=== PATIENT | female | born 1955 | race Caucasian/White ===

== ENCOUNTER 2016-10-26 20:14 | Emergency (ER) | payer OTHER ==
--- NOTE | 2016-10-26 20:57 | ED ---
Adult Trauma - HPI Summary HPI Summary: Pt here w/ fall from deck prior to arrival. Matt is 2-3 foot from the ground. Accidentally stepped off of the edge and fell onto the ground which is dirt patch. Denies chest pain, dizziness or SOB prior to incident. She does not recall how she fell or if she had LOC. Reports believing she landed on her back however reports he found her on her face and she has multiple contusions on her face. She denies NELSON currently as well as nausea, vomiting, photophobia, neck pain, numbness, weakness however has great pain in B/L shoulders and arms which could be distracting from other injuries. Her glasses broke w/ her fall so her vision is blurry but she reports she has terrible vision w/o her glasses. H/o cervical fusion w/ 2 discs removed. Denies use of anti-coagulants and no daily ASA. Only med issue is HTN which is controlled w/ HCTZ. Allergies to naprosyn and flexeril - hives w/o anaphylaxis. Has had ibuprofen in the past w/o issues. Has not tried anything prior to arrival. BIBA. - History of Current Complaint Chief Complaint: EDExtremityUpper Stated Complaint: LT SHOULDER INJURY Time Seen by Provider: 10/26/16 20:29 Hx Obtained From: Patient, Family/Medical Biller Coder - Pain Intensity: 9 - Allergy/Home Medications Allergies/Adverse Reactions: Allergies Allergy/AdvReac Type Severity Reaction Status Date / Time Cyclobenzaprine AdvReac Severe Itching Verified 03/09/15 10:45 [From Flexeril] Naproxen [From Naprosyn] AdvReac Severe Itching Verified 03/09/15 10:45 PMH/Surg Hx/FS Hx/Imm Hx Previously Healthy: Yes Endocrine/Hematology History: Denies: Hx Anticoagulant Therapy, Hx Blood Disorders, Hx Unexplained Bleeding Cardiovascular History: Denies: Hx Pacemaker/ICD Respiratory History: Reports: Hx Sleep Apnea - current auto-CPAP user, some compliance issues, Other Respiratory Problems/Disorders - ex-smoker, current CPAP user, started 08/2012 Musculoskeletal History: Reports: Hx Back Problems - h/o cervical fusion; spinal stenosis, Other Musculoskeletal History - leg pain Denies: Hx Osteoporosis Sensory History: Reports: Hx Contacts or Glasses Denies: Hx Hearing Aid Opthamlomology History: Reports: Hx Contacts or Glasses Neurological History: Reports: Hx Spinal Cord Injury - spinal stenosis Psychiatric History: Denies: Hx Panic Disorder - Cancer History Hx Chemotherapy: No Hx Radiation Therapy: No - Surgical History Surgery Procedure, Year, and Place: [place] [facility] [place] [facility] [place] 2001 [facility]- discectomy, 2009 [facility]- (left) knee medial & meniscus tear Infectious Disease History: Denies: Traveled Outside the [place] in Last 30 Days - Social History Lives: With Family Hx Substance Use: Yes Substance Use Type: Reports: Marijuana Hx Tobacco Use: Yes - no current use Smoking Status (MU): Former Smoker Review of Systems Constitutional: Negative Eyes: Other - see HPI Negative: Dental Pain Negative: Chest Pain Negative: Shortness Of Breath Gastrointestinal: Negative Positive: no symptoms reported Musculoskeletal: Other - see HPI Positive: Bruising - abrasions - see HPI Neurological: Negative Positive: Anxious - pain is aggravating her All Other Systems Reviewed And Are Negative: Yes Physical Exam Triage Information Reviewed: Yes Vital Signs On Initial Exam: Initial Vitals Temp Pulse Resp BP Pulse Ox 97.4 F 80 16 133/84 98 10/26/16 20:20 10/26/16 20:20 10/26/16 20:20 10/26/16 20:20 10/26/16 20:20 Vital Signs Reviewed: Yes Appearance: Positive: Well-Appearing, Well-Nourished, Pain Distress Skin: Positive: Warm, Dry - multiple superficial abrasions over Lt side of face - no bleeding, no open lacerations; superficial abrasions over B/L knees as well Head/Face: Positive: Normal Head/Face Inspection - NTTP, no gross deformity; no battlesign, no raccon eyes Eyes: Positive: Normal, EOMI, AURA, Conjunctiva Clear ENT: Positive: Hearing grossly normal, Pharynx normal, TMs normal - no hemotympanum Dental: Negative: Dental Fracture @ Neck: Positive: Nontender, Other: - B/L paracervical mm are taught/hypertonic Respiratory/Lung Sounds: Positive: Clear to Auscultation, Breath Sounds Present Cardiovascular: Positive: Normal, RRR, Pulses are Symmetrical in both Upper and Lower Extremities Abdomen Description: Positive: Nontender, Soft Musculoskeletal: Positive: Strength/ROM Intact - LE's; spinous pp NTTP; chest is NTTP w/ A/P and lateral compression, Limited @ - elbow extension triggers pain in B/L biceps - better in flexed position; B/L shoulders are NTTP - clavicles appear to be intact - shoulders are worse and limited w/ ROM d/t pain ; she is able to move fingers, wrists B/L w/o pain/restriction Neurological: Positive: Normal, Sensory/Motor Intact, Alert, Oriented to Person Place, Time, CN Intact II-III Psychiatric: Positive: Anxious - aggravated w/ pain Diagnostics - Vital Signs Vital Signs Temp Pulse Resp BP Pulse Ox 10/26/16 20:20 97.4 F 80 16 133/84 98 - Laboratory Lab Statement: Any lab studies that have been ordered have been reviewed, and results considered in the medical decision making process. Adult Trauma Course/Dx - Course Course Of Treatment: Pt presents w/ trauma - fall from deck. Main complaint is B /L shoulder/arm pain. She does not recall events so head was imaged. She denies neck pain however she has muscle gaurding here and h/o cervical fusion so imaging also ordered. B/L shoulder and arms w/ pain w/ movement. XR's reveal no fx and possible AC joint separation - reviewed w/ Dr. Sexton - will sling. Discussed she may also have tendon injury/pain. Needs f/u w/ ortho. Limited medication as pt prefers PO and this was held until brain CT returned. She admits to taking ibuprofen in the past w/o issues (NOTE: allergy to naprosyn and flexeril). Also discussed musle relaxer options but she's concerned she may feel poorly and wanted to avoid until later assesment. Chest, ab, back and LE are w/o pain and/or s/sx of significant injury. UPDATE: brain, face and neck CT 's are w/o acute finding. Pt provided w/ ibuprofen w/ some relief. - Diagnoses Provider Diagnoses: Fall from height of less than 3 feet, Facial contusion, Multiple abrasions, Shoulder pain, bilateral - Physician Notifications Discussed Care Of Patient With: Dr. Sexton Discharge - Discharge Plan Condition: Stable Disposition: HOME Patient Education Materials: Acromioclavicular Separation (ED), Facial Contusion (ED), Abrasion (ED) Referrals: Hari Porter MD [Medical Doctor] - Heetderks,Hung, MD [Primary Care Provider] - Additional Instructions: You appear to have an Acromioclavicular joint separation on your XR therefore you will be placed in a sling. It is important that you rest arm in sling, ice and take ibuprofen 600mg every 6 hours alternating with acetaminophen 600mg every 6 hours for pain and swelling until seen by orthopedics. Call tomorrow to schedule an appointment. Keep your abrasions clean and apply triple antibiotic ointment *If you develop headache, change in vision, vomiting, confusion, neck pain, numbness, tingling, weakness, syncope, return to ED
--- NOTE | 2016-10-26 21:16 | RAD ---
INDICATION: Fall. Facial injury. COMPARISON: None TECHNIQUE: Noncontrast axial source images were acquired from the skull base to the vertex. FINDINGS: Ventricles/sulci: The ventricles and cisterns are normal in size and configuration for age. Brain parenchyma: There is no focal parenchymal finding, evidence of intracranial mass, or intracranial mass effect. Intracranial hemorrhage:None. Extra-axial spaces: There are no abnormal extra axial fluid collections or evidence of extra-axial mass. Calvarium: There is no calvarial fracture or other calvarial abnormality. Scalp: There is no evidence of scalp or extracalvarial soft tissue abnormality. Paranasal sinuses/mastoid: The paranasal sinuses and mastoid air cells are clear. Other: None. IMPRESSION: NO ACUTE INTRACRANIAL FINDINGS
--- NOTE | 2016-10-26 21:19 | RAD ---
INDICATION: Fall. Neck injury. COMPARISON: None TECHNIQUE: Noncontrast axial source images was performed from the skull base to the thoracic inlet. Coronal and and sagittal reformatted images were generated. FINDINGS: Vertebrae: There is no fracture or acute focal bony lesion. There is anterior cervical spine fusion at C5-C7. There is no evidence of hardware failure. There is degenerative disc disease at C3-C4 and C4-C5 with anterior vertebral spurring and uncinate process spurring. Alignment: The craniocervical junction appears normal. The cervical vertebrae are normally aligned. Central Canal: There are no significant CT abnormalities of the central canal. There is mild normal narrowing at C3-C4 and C4-C5 MR imaging is a more sensitive method to evaluate the canal and foramina. Intervertebral disc spaces: As above. Brain: The visualized brain appears unremarkable. Soft tissues: The visualized soft tissue elements of the neck are unremarkable. The prevertebral soft tissues appear normal. The lung apices are clear. IMPRESSION: OSTEOARTHRITIC CHANGES. C5-C7 FUSION. NO ACUTE FINDINGS.
[2016-10-26] MEDS ORDERED: Ibuprofen TAB* 800 MG PO ONE (21:21)
--- NOTE | 2016-10-26 21:21 | RAD ---
INDICATION: Facial injury COMPARISON: None TECHNIQUE: Axial source images were acquired from the vertex of the mandible through the orbits. Coronal and sagittal reconstructed images were acquired. FINDINGS: Bones: There is no acute facial bone fracture. Orbits: The globes and intraconal structures appear intact. The optic nerves are symmetric. Extraocular muscles appear normal. There is no intraconal inflammatory change or retrobulbar mass.. Paranasal sinuses: The paranasal sinuses are clear. Brain: There are no acute abnormalities of the visualized brain parenchyma. Soft tissues: Normal Other: There is minor osteoarthritis about the temporomandibular joints bilaterally The visualized soft tissue elements about the neck appear normal. IMPRESSION: NO ACUTE FACIAL BONE FRACTURE
[2016-10-26 21:33] VITALS: BP 130/77
[2016-10-26] MEDS ORDERED: Acetaminophen TAB* 325 MG PO ONE (23:06)
[2016-10-26] MEDS ORDERED: HYDROcodone/ACETAMIN 5-325 MG* 1 TAB PO ONE (23:26)
[2016-10-26] MEDS ORDERED: Acetaminophen ADULT LIQ* 650 MG/20.3 ML UDC PO ONE (23:27)
--- NOTE | 2016-10-27 07:19 | RAD ---
INDICATION: Left humerus injury. TECHNIQUE: 2 views of the left humerus were obtained. FINDINGS: The bones are in normal alignment. No fracture is seen. IMPRESSION: NO EVIDENCE FOR FRACTURE.
--- NOTE | 2016-10-27 07:20 | RAD ---
INDICATION: Right humerus injury. TECHNIQUE: 2 views of the right humerus were obtained. FINDINGS: The bones are in normal alignment. No fracture is seen. IMPRESSION: NO EVIDENCE FOR FRACTURE.
--- NOTE | 2016-10-27 07:22 | RAD ---
INDICATION: Trauma bilateral shoulder pain. TECHNIQUE: 4 views of both shoulders were obtained. FINDINGS: The bones are in normal alignment. No fracture is seen. Joint spaces appear maintained. IMPRESSION: NO EVIDENCE OF FRACTURE.
== END 2016-10-27 00:26 | disposition home or self-care (01) ==
LOC: ED 20:14
DX: S00.83XA Contusion of other part of head, initial encounter (principal); S00.81XA Abrasion of other part of head, initial encounter; S80.212A Abrasion, left knee, initial encounter; S80.211A Abrasion, right knee, initial encounter; W17.89XA Other fall from one level to another, initial encounter; Y93.9 Activity, unspecified; Y92.9 Unspecified place or not applicable; M25.512 Pain in left shoulder; M25.511 Pain in right shoulder; M47.812 Spondylosis without myelopathy or radiculopathy, cervical region; Z90.710 Acquired absence of both cervix and uterus; Z88.6 Allergy status to analgesic agent; Z88.8 Allergy status to other drugs, medicaments and biological substances; F12.90 Cannabis use, unspecified, uncomplicated; Z87.891 Personal history of nicotine dependence
CPT/HCPCS: 70450; 70486; 72125; 99282; A9270-GY

== ENCOUNTER 2017-06-09 06:09 | Observation (INO) | payer OTHER ==
[~2017-06-09 06:09] MED LIST: Buffered Lidocaine 0.9% SYRIN* 5 ML/SYR SYRINGE INTRADERM ONE; Dexamethasone IV* 4 MG/ML 1 ML (4 MG) IV SLOW PU ONE; Famotidine IV* 10 MG/ML 2 ML (20 mg) IV ONE
[2017-06-09] MEDS ORDERED: Famotidine IV* 10 MG/ML 2 ML (20 mg) ONE (06:18)
[2017-06-09] MEDS ORDERED: Buffered Lidocaine 0.9% SYRIN* 5 ML/SYR SYRINGE ONE (06:19)
[2017-06-09] MEDS ORDERED: Dexamethasone IV* 4 MG/ML 1 ML (4 MG) ONE (06:19)
[2017-06-09] MEDS ORDERED: Thrombin 5,000 UNITS* 1 APPLIC KIT - topical use - TOPICAL ONE (07:15)
[2017-06-09] MEDS ORDERED: Lidocaine 1.5% EPI 1:200,000* 30 ML SDV ONE (07:15)
[2017-06-09] MEDS ORDERED: Bacitracin IV* 50,000 UNITS INJ ONE (07:15)
[2017-06-09] MEDS ORDERED: ceFAZolin 1 GM in Dextrose (*) 2 GM/100 ML BAG IVPB ONE (07:28)
[2017-06-09] MEDS ORDERED: Lidocaine 1% INJ* 10 MG/ML 30 ML SDV ONE (07:35)
[2017-06-09] MEDS ORDERED: Succinylcholine* 20 MG/ML 10 ML VIAL ONE (07:35)
[2017-06-09] MEDS ORDERED: KETAMINE HCL* 50 MG/ML 10 ML VIAL ONE (07:37)
[2017-06-09] MEDS ORDERED: Midazolam* 1 MG/ML 2 ML VIAL (2 MG) ONE (07:37)
[2017-06-09] MEDS ORDERED: Propofol* 10 MG/ML 20 ML BTL IV PUSH ONE (08:40)
[2017-06-09] MEDS ORDERED: Phenylephrine INJ* 10 MG/ML 1 ML VIAL (10 MG) ONE (08:40)
[2017-06-09] MEDS ORDERED: Ketorolac INJ* 30 MG/ML 1 ML VIAL ONE (08:40)
[2017-06-09] MEDS ORDERED: Ondansetron INJ* 2 MG/ML VIAL ONE (08:40)
[2017-06-09] MEDS ORDERED: Acetaminophen TAB* 325 MG PO PRN (08:46)
[2017-06-09] MEDS ORDERED: Ondansetron INJ* 2 MG/ML VIAL IV PRN (08:46)
[2017-06-09] MEDS ORDERED: Magnesium Hydroxide LIQ* 30 ML UDC PO PRN (08:46)
[2017-06-09] MEDS ORDERED: oxyCODONE TAB* 5 MG TAB PO PRN (09:05)
[2017-06-09] MEDS ORDERED: Acetaminophen IV 1GM/100ML * 1,000 MG/100 ML VIAL IVPB PRN (09:10)
[2017-06-09] MEDS ORDERED: Naloxone* 0.4 MG/ML 1 ML VIAL IV PRN (09:10)
[2017-06-09] MEDS ORDERED: DiMENhydriNATE IV* 50 MG/ML VIAL IV PUSH PRN (09:10)
[2017-06-09] MEDS ORDERED: Acetaminophen IV 1GM/100ML * 100 ML ONE (09:31)
--- NOTE | 2017-06-09 11:11 | RAD ---
Indication: Decompressive lumbar laminectomy. Single lateral view of the lumbar spine taken in the operating room demonstrates localization of L5. IMPRESSION: Localization of L5 vertebra.
[2017-06-09] MEDS: CYCLOSPORINE 0.05% BOTH EYES SCH ×2 (14:06→20:29)
--- NOTE | 2017-06-10 07:52 | PN ---
Progress Note - Progress Note Date of Service: 06/10/17 SOAP: Subjective: []POD # 1 Doing well Leg yaa better C/O incisional pain Objective: []Wound OK Drainage decreased Neuro intact Assessment: []Satis post op course Plan: []D/C today D/C instructions given
[2017-06-10 08:30] VITALS: BP 100/57
[2017-06-10] MEDS: CYCLOSPORINE 0.05% BOTH EYES SCH (08:44)
--- NOTE | 2017-06-10 12:22 | OP ---
DATE OF OPERATION: 06/09/17 - ROOM #338 DATE OF : 55 PRIMARY SURGEON: Ramon Chu MD LOOM OPERATOR: TANIKA Wylie ANESTHESIA: General. PRE-OP DIAGNOSIS: Lumbar spinal stenosis, L4-5. POST-OP DIAGNOSIS: Lumbar spinal stenosis, L4-5. OPERATIVE PROCEDURE: Decompressive lumbar laminectomy L4-5 with foraminotomies L4- 5 bilaterally. DESCRIPTION OF PROCEDURE: After satisfactory general anesthesia was obtained, the patient was placed on the operating room table in a prone position with the chest supported on the Henrry frame and the back slightly flexed. The lumbar region was then clipped, prepped, and draped in a sterile manner for lumbar laminectomy and a skin incision was outlined from L4 to the sacrum. This incision was infiltrated with 1% Xylocaine with epinephrine after which it was turned in sharply to the level of the lumbar fascia. The fascia was divided along the spinous processes from L4 to L5 and the paraspinal musculature stripped away from these posterior elements using the periosteal elevator and monopolar cautery. An intraoperative x-ray was obtained, verifying proper interspace localization after which a decompression was carried out by first removing the spinous process of L4 with the Leksell rongeur as well as the superior aspect of the spinous process of L5. Midas Kip drill was then used to thin out the inferior portion of the lamina of L4 as well as the medial facet complex bilaterally. The decompression was carried superiorly into the fascia and the ligamentum flavum was taken down. The thickened ligamentum flavum was removed along with the medial facet complex bilaterally. The pathology at this level was a combination of bony and ligamentum thickening causing significant nerve root compression bilaterally more pronounced on the right side. At the conclusive of the decompression, generous foraminotomies had been carried out over both L5 nerve roots. The wound was then thoroughly irrigated after which a piece of Gelfoam was placed over the laminectomy defect. A drain was placed in the epidural space and tunneled out toward the left side. The fascia was then reapproximated with 0 Vicryl suture. The subcutaneous tissue was closed with 3-0 Vicryl suture, the skin closed with skin clips. The estimated blood loss was less than 50 cc. The final sponge, padding, and needle counts were correct. The patient was taken to the recovery room, extubated and in stable condition. [id number]/[facility] #: [id number] EDMAR
== END 2017-06-10 09:35 | disposition home or self-care (01) ==
LOC: OR 06:09 → SSU 08:46
PROVIDERS: ADMIT Neurological Surgery; ATTEND Neurological Surgery
PROC: 00NY0ZZ Release Lumbar Spinal Cord, Open Approach (ICD-10-PCS; principal; 2017-06-09 07:45)
DX: M48.061 Spinal stenosis, lumbar region without neurogenic claudication (principal)
CPT/HCPCS: 72100; A9270-GY; G0378; J0330; J0690; J1100; J1885; J2250; J2405; J2704

== ENCOUNTER 2018-10-28 16:02 | Observation (INO) | payer OTHER ==
--- OUTSIDE RECORDS SUMMARY | 2018-10-28 16:29 | XMS REPORT | Continuity of Care Document ---
:1955 External Reference #:[id number] Author Name Jennifer Jo Care Team Providers Name Role Phone Hung Williamson MD Primary Care Physician Unavailable Payers Date Identification Numbers Payment Provider Subscriber Policy Number: [id number] [employer] Beto Ocampo Group Number: [id number] [address] PayID: [id number] [place] [address] Problems Active Problems Provider Date Sciatica Ramon Chu M.D. Onset: 03/05/2015 Spinal stenosis of lumbar region Ramon Chu M.D. Onset: 03/26/2015 Localized, primary osteoarthritis Donna Bucio M.D. Onset: 10/06/2018 Family History Date Family Member(s) Observation Comments General Lung Cancer Father Mother Sister has had steroid injections for joint pain Social History Type Date Description Comments Sex Unknown Occupation Retired ETOH Use Occasionally consumes alcohol ETOH Use Occasionally consumes wine Tobacco Use Start: Unknown End: Patient is a former Quit 1999; Started Unknown smoker age 15; smoked max 1ppd Recreational Drug Use Denies Drug Use Smoking Status Reviewed: 10/06/18 Patient is a former Quit 1999; Started smoker age 15; smoked max 1ppd Exercise Type/Frequency Exercises regularly Allergies, Adverse Reactions, Alerts Active Allergies Reaction Severity Comments Date Flexeril 03/02/2015 Naproxen 03/05/2015 Medications Active Medications SIG Qnty Indications Ordering Provider Date Turmeric take one 90caps Z79.899 Bob Gaytan, 08/26/2018 500mg Capsules capsule/tablet M.D. daily by mouth Plaquenil 1 by mouth every 45tabs Bob Gaytan, 07/14/2018 200mg Tablets day for 1 week M.D. then 2 by mouth daily ongoing Restasis Instill 1 Drop Unknown 0.05% Emulsion In Each Eye Two Times Daily Probiotic 1 by mouth every Unknown Capsules day Multivitamin Adult 1 by mouth every Unknown day Tablets Fish Oil Unknown History Medications Ibuprofen 200 prn Unknown - 200mg Tablets 08/26/2018 Restasis Unknown - 0.05% Emulsion 07/01/2018 Naltrexone HCL 1 by mouth Unknown - 50mg Tablets every day 07/01/2018 Vitamin B1 1 by mouth bid Unknown - 100mg Tablets 07/01/2018 Thiamine HCL 1 by mouth Unknown - 100mg Tablets every day 07/01/2018 Vitamin B-12 1 by mouth Unknown - 1000mcg Tablets every day 07/01/2018 Folic Acid 1 by mouth Unknown - 5mg Tablets every day 07/01/2018 Multivitamin Adults 50+ once a day Unknown - Adlt 50+ 07/01/2018 Tablets Diclofenac Sodium Valentin Stuart - 0.1% Solution MD Luisito 03/30/2017 Hydrochlorothiazide Hung Williamson - 25mg Tablets MD Ashely 03/30/2017 Bacitracin (Ophthalmic) Unknown - 500Unit/GM 03/30/2017 Ointment Tobramycin-Dexamethasone Unknown - 0.3-0.1% 03/30/2017 Suspension Hydrocodone-Acetaminophen Unknown - 5-325mg 03/30/2017 Tablets Soy Isoflavones 1 qd Unknown - 100mg Capsules 07/01/2018 Citracal Calcium+D Slow 1 by mouth Unknown - Release every day 10/05/2018 [id number]-mg-Unit Tablets ER 24HR Fish Oil 1 by mouth Unknown - 1000mg Capsules every day 07/01/2018 Magnesium 1 by mouth Unknown - 200mg Tablets twice a day 07/01/2018 Vitamin C 1 by mouth 3x a Unknown - 250mg Chewtabs day 07/01/2018 Vital Signs Date Vital Result Comment 10/06/2018 11:01am Height 65.5 inches 5'5.50" Weight 156.00 lb BP Systolic 126 mmHg BP Diastolic 76 mmHg Body Temperature 97.9 F BMI (Body Mass Index) 25.6 kg/m2 08/26/2018 12:14pm Height 66 inches 5'6" Weight 154.38 lb Heart Rate 74 /min BP Systolic Sitting 120 mmHg BP Diastolic Sitting 80 mmHg Pain Level 2 O2 % BldC Oximetry 98 % BMI (Body Mass Index) 24.9 kg/m2 07/14/2018 1:39pm Height 66 inches 5'6" Weight 156.00 lb Heart Rate 62 /min BP Systolic Sitting 122 mmHg BP Diastolic Sitting 80 mmHg Pain Level 2 O2 % BldC Oximetry 98 % BMI (Body Mass Index) 25.2 kg/m2 07/01/2018 12:56pm Height 66 inches 5'6" Weight 140.00 lb Heart Rate 77 /min BP Systolic Sitting 105 mmHg BP Diastolic Sitting 57 mmHg Respiratory Rate 14 /min Pain Level 3 BMI (Body Mass Index) 22.6 kg/m2 07/13/2017 10:08am Height 66 inches 5'6" Weight 139.00 lb Heart Rate 60 /min BP Systolic Sitting 100 mmHg BP Diastolic Sitting 70 mmHg Pain Level 0 BMI (Body Mass Index) 22.4 kg/m2 06/22/2017 10:05am Height 66 inches 5'6" Weight 139.00 lb Heart Rate 62 /min BP Systolic Sitting 106 mmHg BP Diastolic Sitting 68 mmHg Pain Level 2 BMI (Body Mass Index) 22.4 kg/m2 06/15/2017 10:54am Height 66 inches 5'6" Weight 139.00 lb Heart Rate 78 /min BP Systolic Sitting 121 mmHg BP Diastolic Sitting 71 mmHg Pain Level 3 BMI (Body Mass Index) 22.4 kg/m2 05/20/2017 10:33am Height 66 inches 5'6" Weight 139.00 lb Heart Rate 66 /min BP Systolic Sitting 128 mmHg BP Diastolic Sitting 71 mmHg Pain Level 5 BMI (Body Mass Index) 22.4 kg/m2 03/30/2017 10:25am Height 66 inches 5'6" Weight 139.50 lb Heart Rate 72 /min BP Systolic Sitting 116 mmHg BP Diastolic Sitting 66 mmHg Pain Level 1 BMI (Body Mass Index) 22.5 kg/m2 03/23/2017 10:53am Height 66 inches 5'6" Weight 140.00 lb Heart Rate 77 /min BP Systolic Sitting 118 mmHg BP Diastolic Sitting 78 mmHg Pain Level 3 BMI (Body Mass Index) 22.6 kg/m2 11/20/2016 8:42am Height 66 inches 5'6" Weight 140.00 lb Heart Rate 75 /min Respiratory Rate 17 /min Pain Level 1 BMI (Body Mass Index) 22.6 kg/m2 10/27/2016 1:24pm Height 66 inches 5'6" Weight 140.00 lb BP Systolic 145 mmHg BP Diastolic 82 mmHg Respiratory Rate 17 /min Pain Level 6 BMI (Body Mass Index) 22.6 kg/m2 03/26/2015 9:30am Height 67 inches 5'7" Weight 142.00 lb Heart Rate 62 /min BP Systolic Sitting 110 mmHg BP Diastolic Sitting 80 mmHg Pain Level 6 r leg BMI (Body Mass Index) 22.2 kg/m2 03/05/2015 9:57am Height 67 inches 5'7" Weight 142.00 lb Heart Rate 86 /min BP Systolic Sitting 136 mmHg BP Diastolic Sitting 74 mmHg Pain Level 7 R foot, ankle & calf BMI (Body Mass Index) 22.2 kg/m2 03/02/2015 9:57am Height 67 inches 5'7" Weight 140.00 lb Pain Level 8 BMI (Body Mass Index) 21.9 kg/m2 Results Test Date Facility Test Result H/L Range Note Laboratory test 08/23/2018 [facility] Erythrocyte Sed 14 mm/Hr N 0-29 [address] [place] [address] [phone] C Reactive Protein 2.14 mg/L N <8.01 2 CBC Auto Diff 08/23/2018 [facility] White Blood 6.5 10^3/uL N 3.5-10.[address] [place] [address] [phone] Red Blood Count 4.45 10^6/uL N 3.70-4.87 Hemoglobin 13.3 g/dL N 12.0-16.0 Hematocrit 40 % N 33-41 Mean Corpuscular Volume 90 fL N 80-97 Mean Corpuscular Hemoglobin 30 pg N 27-31 Mean Corpuscular HGB Conc 33 g/dL N 31-36 Red Cell Distribution Width 14 % N 10.5-15 Platelet Count 336 10^3/uL N 150-450 Mean Platelet Volume 8.3 fL N 7.4-10.4 Abs Neutrophils 3.1 10^3/uL N 1.5-7.7 Abs Lymphocytes 2.6 10^3/uL N 1.0-4.8 Abs Monocytes 0.8 10^3/uL N 0-0.8 Abs Eosinophils 0.1 10^3/uL N 0-0.6 Abs Basophils 0 10^3/uL N 0-0.2 Abs Nucleated RBC 0 10^3/uL Granulocyte % 47.1 % Lymphocyte % 39.6 % Monocyte % 11.7 % Eosinophil % 1.4 % Basophil % 0.2 % Nucleated Red Blood Cells % 0.1 Comp Metabolic Panel 08/23/2018 [facility] Sodium 140 mmol/L N 135-145 [address] [place] [address] [phone] Potassium 4.4 mmol/L N 3.5-5.0 Chloride 104 mmol/L N 101-111 Co2 Carbon Dioxide 29 mmol/L N 22-32 Anion Gap 7 mmol/L N 2-11 Glucose 83 mg/dL N 70-100 Blood Urea Nitrogen 14 mg/dL N 6-24 Creatinine 0.72 mg/dL N 0.51-0.95 BUN/Creatinine Ratio 19.4 N 8-20 Calcium 10.3 mg/dL N 8.6-10.3 Total Protein 7.1 g/dL N 6.4-8.9 Albumin 4.5 g/dL N 3.2-5.2 Globulin 2.6 g/dL N 2-4 Albumin/Globulin Ratio 1.7 N 1-3 Total Bilirubin 0.40 mg/dL N 0.2-1.0 Alkaline Phosphatase 82 U/L N 34-104 Alt 17 U/L N 7-52 Ast 23 U/L N 13-39 Egfr Non- 82.1 >60 Egfr 99.3 >60 3 Laboratory test 07/01/2018 [facility] Uric Acid 4.0 mg/dL N 2.3-6.6 [address] [place] [address] [phone] Protein 07/01/2018 [facility] Total 6.8 g/dL 6.3 - 7.[address] Protein([place] [address] p) [phone] Albumin 3.5 g/dL 3.4-4.7 Alpha-1 Globulin 0.3 g/dL 0.1-0.3 Alpha-2 Globulin 0.8 g/dL 0.6-1.0 Beta Globulin 0.9 g/dL 0.7-1.2 Gamma Globulin 1.2 g/dL 0.6-1.6 Albumin/Globulin Ratio 1.07 Impression See Comment 5 Laboratory test 07/01/2018 [facility] Vitamin D 24.3 ng/mL N 20-50 [address] Total 25(Oh) [place] [address] [phone] Pthi 07/01/2018 [facility] Calcium (PTH 9.4 mg/dL N 8.6-10.[address] Intact) [place] [address] [phone] PTH Intact 4.5 pmol/L N 1.3-9.3 Alkaline Phos 07/01/2018 [facility] Alkaline 98 U/L 35 - [address] [address] [phone] Alp Liver 1% 36.6 % 27.8-76.3 Alp Liver 1 35.9 IU/L 16.2-70.2 Alp Liver 2% 5.4 % 0.0-8.0 Alp Liver 2 5.3 IU/L 0.0-5.8 Alp Bone % 32.8 % 19.1-67.7 Alp Bone 32.1 IU/L 12.1-42.7 Alp Intestine % 25.2 % Abnormal 0.0-20.6 Alp Intestine 24.7 IU/L Abnormal 0.0-11.0 Alp Placental NotPresent 7 Laboratory 07/01/2018 [facility] Aso 200 Abnormal <200 8 test finding [address] (Antistreptolysin IU/mL Iu/[place] [address] O) Titer IU/mL [phone] Angiotensin Converting Enzyme 61 U/L Abnormal 8 - 53 9 Thyroperoxidase AB 0.83 IU/mL N <9 10 Cortisol 3.53 g/dL 11 Cardiolipin 07/01/2018 [facility] Phospholipid Ab < 9.4 MPL 12 Igg/Igm [address] IgM, [place] [address] [phone] Phospholipid Ab IgG < 9.4 GPL 13 Immunoglobulins 07/01/2018 [facility] Immunoglobulin G 1120 767 - [address] mg/dL 1590 [place] [address] [phone] Immunoglobulin M 80 mg/dL 37 - 286 Immunoglobulin A 346 mg/dL 61 - 356 Anca AB Ser If 07/01/2018 [facility] C-Anca Negative Negative [address] [place] [address] [phone] P-Anca Negative Negative 15 Ssa/SSB Abs Igg 07/01/2018 [facility] SS-A/Ro Antibody <0.2 U [address] [place] [address] [phone] SS-B/La Antibody <0.2 U 17 Hla B27 07/01/2018 [facility] Hla B27 Negative [address] [place] [address] [phone] Hla B27 Interp See Comment 19 Vitamin B12 And 07/01/2018 [facility] Vitamin B12 510 pg/mL N 180-914 [address] [place] [address] [phone] Folic Acid (Folate) 8.99 ng/mL >3.99 21 Laboratory test 07/01/2018 [facility] Erythrocyte Sed 23 mm/Hr N 0-[address] [place] [address] [phone] Creatine Kinase(CK) 52 U/L N 10-223 23 Tick-Borne Panel 07/01/2018 [facility] Babesia Negative Negative PCR Blood [address] [place] [address] [phone] Babesia ducani Negative Negative Babesia divergens/Mo-1 Negative Negative 24 Anaplasma phagocytophilum Negative Negative Ehrlichia chaffeensis Negative Negative Ehrlichia ewingii/canis Negative Negative Ehrlichia muris eauclairensis Negative Negative 25 B. miyamotoi PCR, B Negative Negative 26 Body Fluid C&S 06/15/2017 [facility] Body Fluid Cult SEE RESULT 27, [address] [place] [address] [phone] Laboratory test 06/02/2017 [facility] TSH (Thyroid 2.95 N 0.[address] Stimulating mcIU/mL -5.6 [place] [address] Horm) 0 [phone] Basic Metabolic 06/02/2017 [facility] Sodium 137 mmol/L N 133 - Panel [address] [place], [place] [address] [phone] Potassium 4.1 mmol/L N 3.5-5.0 Chloride 102 mmol/L N 101-111 Co2 Carbon Dioxide 28 mmol/L N 22-32 Anion Gap 7 mmol/L N 2-11 Glucose 76 mg/dL N 70-100 Blood Urea Nitrogen 12 mg/dL N 6-24 Creatinine 0.70 mg/dL N 0.51-0.95 BUN/Creatinine Ratio 17.1 N 8-20 Calcium 9.8 mg/dL N 8.6-10.3 Egfr Non- 85.1 >60 Egfr 109.4 >60 29 CBC No Diff 06/02/2017 [facility] White Blood 7.6 10^3/uL N 3.5-10.[address] [place] [place] [address] [phone] Red Blood Count 4.49 10^6/uL N 4.0-5.4 Hemoglobin 13.7 g/dL N 12.0-16.0 Hematocrit 41 % N 35-47 Mean Corpuscular Volume 91 fL N 80-97 Mean Corpuscular Hemoglobin 31 pg N 27-31 Mean Corpuscular HGB Conc 34 g/dL N 31-36 Red Cell Distribution Width 13 % N 10.5-15 Platelet Count 337 10^3/uL N 150-450 Mean Platelet Volume 9 um3 N 7.4-10.4 1 Please check labs 2 days before follow up 2 Please check labs 2 days before follow up 3 Because ethnic data is not always readily available, this report includes an eGFR for both -Americans and non- Americans. The National Kidney Disease Education Program (NKDEP) does not endorse the use of the MDRD equation for patients that are not between the ages of 18 and 70, are , have extremes of body size, muscle mass, or nutritional status, or are non- or non-. According to the National Kidney Foundation, irrespective of diagnosis, the stage of the disease is based on the level of kidney function: Stage Description GFR(mL/min/1.73 m(2)) 1 Kidney damage with normal or decreased GFR 90 2 Kidney damage with mild decrease in GFR 60-89 3 Moderate decrease in GFR 30-59 4 Severe decrease in GFR 15-29 5 Kidney failure <15 (or dialysis) 4 Please check labs and xrays this week 5 RESULT: No apparent monoclonal protein on serum electrophoresis. Test Performed by: [facility] [facility] [place] [address] 6 Please check labs and xrays this week 7 REFERENCE VALUE Not present Test Performed by: [place] [address] 8 Normal values may vary with age, season and geographic area. Titers above upper limits may be indicative of infection, however only a two dilution rise in titer is required to be considered significant. ASO titer will usually rise above upper limits within one week of exposure, increase to peak levels at 3-5 weeks and return to baseline level at 6-12 twelve months. 9 Test Performed by: [place] [address] 10 Please check labs and xrays this week 11 AM 8.7-22.4 PM <10 12 REFERENCE VALUE <15.0 (Negative) 13 REFERENCE VALUE <15.0 (Negative) Test Performed by: [place] [id number] Test Performed by: [facility] [place] [address] [place] [address] 15 Negative for cANCA and pANCA patterns by immunofluorescence. ADDITIONAL INFORMATION This test was developed and its performance characteristics determined by [facility] in a manner consistent with CLIA requirements. This test has not been cleared or approved by the U.S. Food and Drug Administration. Test Performed by: [facility] [place] - [address] [address] 16 REFERENCE VALUE <1.0 (Negative) 17 REFERENCE VALUE <1.0 (Negative) Test Performed by: [facility] [place] [facility] [address] [place] [address] 18 REFERENCE VALUE Not Applicable 19 RESULT: HLA-B27 antigen was not detected. ADDITIONAL INFORMATION Method: Flow Cytometry Performing Laboratory CLIA# [id number] Test Performed by: [facility] [place] [address] [place] [address] 20 Normal Range 180 to 914 Indeterminate Range 145 to 180 Deficient Range <145 21 Please check labs and xrays this week 22 Test Performed by: [facility] [address] [place], [place] [address] Og Clay M.D. Director of Laboratory 23 Please check labs and xrays this week 24 ADDITIONAL INFORMATION This test was developed and its performance characteristics determined by [facility] in a manner consistent with CLIA requirements. This test has not been cleared or approved by the U.S. Food and Drug Administration. 25 ADDITIONAL INFORMATION This test was developed and its performance characteristics determined by [facility] in a manner consistent with CLIA requirements. This test has not been cleared or approved by the U.S. Food and Drug Administration. 26 ADDITIONAL INFORMATION This test was developed and its performance characteristics determined by [facility] in a manner consistent with CLIA requirements. This test has not been cleared or approved by the U.S. Food and Drug Administration. Test Performed by: [facility] - [address] [address] 27 [id number] SEE RESULT BELOW Name: BETO OCAMPO : 1955 Attend : Jana SAGASTUME Acct: [id number] Unit: [id number] AGE: 61 Location: [facility] Re06/15/17 SEX: F Status: REG REF SPEC: [id number] AREN: 06/15/17-1200 [facility] : Jana SAGASTUME REQ: [id number] RECD: 06/15/17 STATUS: COMP _ SOURCE: BODY FLUID [facility]: ORDERED: BF Richard/GS, MRSA/SA SSTI COMMENTS: [id number] Procedure Result Reported Site Body Fluid Gram Stain Final 06/16/17- 0723 ML 3+ Neutrophils No Organisms Seen Preparation By Cytospin Smear Body Fluid Culture Final 06/19/17- 0835 ML No Growth Day 4 MRSA/S. aureus SSTI PCR Final 06/16/17- 0026 ML Organism 1 MRSA NEGATIVE Organism 2 S.AUREUS NEGATIVE * ML - MAIN LAB ([facility]) . END OF REPORT * ML=Testing performed at Main Lab DEPARTMENT OF PATHOLOGY, [address] [place] [address] Og Clay M.D. Director [facility] # [id number] 29 Because ethnic data is not always readily available, this report includes an eGFR for both -Americans and non- Americans. The National Kidney Disease Education Program (NKDEP) does not endorse the use of the MDRD equation for patients that are not between the ages of 18 and 70, are , have extremes of body size, muscle mass, or nutritional status, or are non- or non-. According to the National Kidney Foundation, irrespective of diagnosis, the stage of the disease is based on the level of kidney function: Stage Description GFR(mL/min/1.73 m(2)) 1 Kidney damage with normal or decreased GFR 90 2 Kidney damage with mild decrease in GFR 60-89 3 Moderate decrease in GFR 30-59 4 Severe decrease in GFR 15-29 5 Kidney failure <15 (or dialysis) Procedures Date Code Description Status 10/06/2018 86938 Inject/Drain Joint/Bursa Major W/O US Completed 03/24/2018 [id number] Bone Mineral Density Test Completed 06/09/2017 41647 Lundy/Facet/Foraminotomy;Vertebral Segment; Lumbar Completed 06/09/2017 66939 Lundy/Facet/Foraminotomy;Vertebral Segment; Lumbar Completed 06/02/2017 17490 EKG, Interpretation Only Completed 08/31/2012 28389 Polysomnography Sleep Staging 4+ Parameters W/Cpap Completed 07/19/2012 33697 Polysomnography Sleep Staging 4+ Parameters Completed Encounters Type Date Location Provider Dx Diagnosis Office Visit 08/26/2018 Rheumatology Bob Gaytan 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 polyarthropathy R74.8 Abnormal levels of other serum enzymes Z79.899 Other extermination inspector (current) drug therapy I73.00 Raynaud's syndrome without gangrene Office Visit 07/01/2018 Rheumatology Bob M06.4 Inflammatory 1:00p [facility] M.D. 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 M25.522 Pain in left elbow Office Visit 10/27/2016 1:00p Orthopedic Hari Jacobson M25.512 Pain in left [facility] M25.522 Pain in left elbow M79.602 Pain in left arm Office Visit 03/26/2015 Neurosurgery Ramon Chu, M48.06 Spinal stenosis , 9:30a [facility] lumbar region Office Visit 03/05/2015 Neurosurgery Ramon Chu M54.31 Sciatica, right 10:15a [facility] side Office Visit 03/02/2015 Kalpana Marvin M54.31 Sciatica, right 9:40a [facility] Luther Sales M.D. side Office Visit 08/04/2012 Wilbert Marvin 327.23 Obstructive Sleep 3:46p Disorder [facility] 327.51 Periodic Limb Movement Disorder Office Visit 06/09/2012 11:02a Wilbert Marvin 786.09 Dyspnea & Disorder [facility] Abnormalities Other 780.79 Malaise And Fatigue Other Plan of Treatment Future Appointment(s):11/10/2018 10:15 am - Donna Bucio M.D. at [facility]11/29/2018 10:40 am - Bob Lukas, M.D. at [facility]umatology [facility]10/06/2018 - Donna Bucio M.D.M25.562 Pain in left kneeFollow up :Follow up: 4 cqrnzI79.462 Effusion, left kneeM17.12 Unilateral primary osteoarthritis, left kneeNew Therapy:Physical Therapy
--- OUTSIDE RECORDS SUMMARY | 2018-10-28 16:29 | XMS REPORT | Continuity of Care Document ---
:1955 External Reference #:[id number] Author Name Hung Williamson MD Address [address] [place] [address] Care Team Providers Name Role Phone Hung Williamson MD Care Team Information Room Service Supervisor Unavailable Payers Date Identification Numbers Payment Provider Subscriber Policy Number: [id number] [employer](Open Choice) Beto Ocampo Group Number: [id number] [address] PayID: [id number] [place] [address] Family History Date Family Member(s) Observation Comments General Cancer, Lung Several relatives all at once: Father, sister, father in law. 13 years ago. They both quickly, less than a year later. Social History Type Date Description Comments Sex Unknown Marital Status Lives With Male Partner Occupation Retired Director of IS at Tobacco Use Start: Unknown End: Former Cigarette Smoker Smoked for 30 years. 3 Unknown relatives of lung cancer. ETOH Use Consumed 3 glasses of She was drinking wine wine per day in the past until she passed out at one point, she is in chemical dependency treatment. Allergies, Adverse Reactions, Alerts Active Allergies Reaction Severity Comments Date Flexeril Urticaria 05/05/2016 Naprosyn Urticaria 05/05/2016 Amoxicillin / Clavulanate diarrhea, severe 01/07/2017 Medications Active Medications SIG Qnty Indications Ordering Date Provider Doxycycline Hyclate 1 tab by mouth 28tabs Hung 10/27/2018 100mg Tablets twice a day x MD Clay 14 days Ok For Herbal Tea, Back R20.2 Hung 02/19/2017 Massages, And General MD Clay Relaxation Citracal Calcium two by mouth Unknown daily 203-63-528yp-mg-Unit Tablets ER 24HR Restasis per eye doctor Unknown 0.05% Emulsion Fluorometholone Instill 1 Drop Unknown 0.1% Suspension Three Times Daily In The Right Eye For 1 Week, Then Two Times Daily For 1 Week Probiotic Acidophilus 1 by mouth Unknown Capsules every day Hydroxychloroquine Sulfate Take 2 Tablets Unknown 200mg By Mouth Every Tablets Day Tumersaid Unknown Tablets History Medications Levofloxacin 1 tab by everyday 7tabs J18.9 Adore [place] 06/23/2018 - 500mg Tablets for 7 days for Zeb Larios 10/27/2018 pneumonia Proair HFA 2 puffs every 4 1units J18.9 Adore [place] 06/23/2018 - 108(90Base) mcg/Act hours as needed Zeb Larios 10/27/2018 Aerosol wheezing- may fill with any preferred albuterol inhaler Flovent Diskus inhale one puff 60units J18.9 Adore [place] 06/23/2018 - 100mcg/Blist by mouth twice Zeb Larios 10/27/2018 Aerosol daily as directed - rinse mouth after use Guaifenesin ac 5 milliliters at 100ml J18.9 Adore [place] 06/23/2018 - 100-10mg/5ML night as needed Zeb Larios 10/27/2018 Syrup for cough- causes drowsiness Doxycycline Hyclate 1 tab by mouth 20tabs J18.9 Hung 06/16/2018 - 100mg twice a day x 10 MD Clay 06/23/2018 Tablets days Doxycycline Monohydrate 1 by mouth twice 20caps J01.90 Adore [place] 2017 - 100mg a day x 10 days Zeb Larios 06/16/2018 Capsules for sinusitis/ bronchitis - Please Fill Now Zyrtec Allergy 1 by mouth every 30tabs R05 Hung 05/19/2016 - 10mg Tablets day MD Clay 01/07/2017 Protonix 1 tab by mouth 30tabs R05 Hung 05/19/2016 - 20mg Tablets DR nubia Williamson MD 01/07/2017 Hydrochlorothiazide 1 by mouth every 90tabs I10 Hung 05/19/2016 - 25mg day MD Clay 01/07/2017 Tablets Lotemax Apply 1/4 Inch Unknown - 0.5% Ointment Ribbon To Left 10/27/2018 Lower Lid Two Times Daily For 2 Weeks Ibuprofen 200 as needed Unknown - 200mg Tablets 10/27/2018 Dina Back & Body Unknown - 500-32.5mg 04/12/2018 Tablets Antifungal apply to feet for Unknown - 1% Cream athlete's foot 03/29/2018 Thiamine HCL 1 by mouth once Unknown - 100mg Tablets per day 04/12/2018 Melatonin ER Unknown - 3mg Tablets ER 01/06/2018 Vitamin B-12 1000 mcg by mouth Unknown - Natural every day 04/12/2018 500mcg Tablets Folic Acid 1 by mouth every Unknown - 5mg Capsules day 04/12/2018 Naltrexone HCL 1 by mouth every 90tabs Hung - 50mg Tablets day MD Clay 01/06/2018 Artificial Tears use q 2 hrs prn Unknown - 0.1-0.3% 03/29/2018 Solution Diclofenac Sodium eye drops Unknown - 0.1% Solution 01/07/2017 Soy Isoflavones Unknown - 100mg Capsules 04/12/2018 Magnesium 1 by mouth every Unknown - 400mg Tablets day 04/12/2018 Fish Oil 1 by mouth every Unknown - 1000mg Capsules day 04/12/2018 Vitamin C Unknown - 500mg Capsules 04/12/2018 Multivitamin Adult 1 by mouth every Unknown - Tablets day 04/12/2018 Medications Administered in Office Medication SIG Qnty Indications Ordering Provider Date TB,Intradermal (PPD, Mantoux) [facility] 10/14/2016 Injection Immunizations CPT Code Status Date Vaccine Lot # [id number] Given 01/06/2018 Influenza Virus Vaccine, Quadrivalent, 3 Yr > [id number] Quad, Preserv Free [id number] Given 03/06/2017 Zoster Vaccine [id number] Given 01/29/2017 Tdap (Adacel) [id number] Given 01/07/2017 Influenza Virus Vaccine, Quadrivalent, 3 Yr > [id number] Quad, Preserv Free Vital Signs Date Vital Result Comment 10/27/2018 4:49pm Weight 152.12 lb Weight 69.004 kg BP Systolic 114 mmHg BP Diastolic 64 mmHg Heart Rate 100 /min Body Temperature 102.0 F Respiratory Rate 18 /min Height 66 inches 5'6" BMI (Body Mass Index) 24.6 kg/m2 O2 % BldC Oximetry 97 % 06/28/2018 9:44am Weight 157.00 lb Weight 71.215 kg BP Systolic 128 mmHg BP Diastolic 72 mmHg Heart Rate 74 /min Body Temperature 97.8 F Respiratory Rate 16 /min O2 % BldC Oximetry 98 % 06/23/2018 11:43am Weight 157.12 lb Weight 71.272 kg BP Systolic 128 mmHg BP Diastolic 76 mmHg Heart Rate 86 /min Body Temperature 98.2 F Respiratory Rate 18 /min O2 % BldC Oximetry 98 % 06/16/2018 9:27am Weight 157.00 lb Weight 71.215 kg BP Systolic 102 mmHg BP Diastolic 54 mmHg Heart Rate 74 /min Body Temperature 98.5 F Respiratory Rate 18 /min O2 % BldC Oximetry 96 % 04/22/2018 10:31am Weight 156.00 lb Weight 70.762 kg BP Systolic 104 mmHg BP Diastolic 60 mmHg Heart Rate 75 /min Body Temperature 98.4 F Respiratory Rate 20 /min O2 % BldC Oximetry 96 % 04/12/2018 4:27pm Weight 157.00 lb Weight 71.215 kg BP Systolic 104 mmHg BP Diastolic 64 mmHg Heart Rate 80 /min Body Temperature 98.7 F O2 % BldC Oximetry 95 % 03/29/2018 9:57am Weight 154.00 lb Weight 69.854 kg BP Systolic 102 mmHg BP Diastolic 60 mmHg Heart Rate 84 /min Body Temperature 98.3 F Respiratory Rate 14 /min 03/03/2018 4:11pm Weight 154.00 lb Weight 69.854 kg BP Systolic 112 mmHg BP Diastolic 74 mmHg Heart Rate 74 /min Body Temperature 97.1 F Respiratory Rate 16 /min O2 % BldC Oximetry 97 % 01/06/2018 7:59am Weight 150.00 lb Weight 68.040 kg BP Systolic 110 mmHg BP Diastolic 72 mmHg Heart Rate 74 /min Body Temperature 97.0 F Respiratory Rate 16 /min Height 66 inches 5'6" BMI (Body Mass Index) 24.2 kg/m2 O2 % BldC Oximetry 98 % 03/06/2017 2:50pm BP Systolic 110 mmHg BP Diastolic 69 mmHg Heart Rate 76 /min Body Temperature 97.9 F O2 % BldC Oximetry 97 % 02/19/2017 11:15am Weight 143.00 lb Weight 64.865 kg BP Systolic 122 mmHg BP Diastolic 60 mmHg Heart Rate 80 /min Body Temperature 98.0 F 01/29/2017 11:03am Weight 143.00 lb Weight 64.865 kg BP Systolic 108 mmHg BP Diastolic 64 mmHg Heart Rate 68 /min Body Temperature 98.3 F Respiratory Rate 16 /min 01/07/2017 11:41am BP Systolic 124 mmHg BP Diastolic 76 mmHg Heart Rate 68 /min Body Temperature 97.8 F Respiratory Rate 16 /min O2 % BldC Oximetry 98 % 06/27/2016 9:35am Weight 143.00 lb Weight 64.865 kg BP Systolic 140 mmHg BP Diastolic 80 mmHg Heart Rate 68 /min Body Temperature 98.4 F Respiratory Rate 12 /min 05/19/2016 9:47am Weight 142.00 lb Weight 64.411 kg BP Systolic 164 mmHg BP Diastolic 92 mmHg Heart Rate 89 /min Body Temperature 96.4 F Respiratory Rate 16 /min O2 % BldC Oximetry 97 % 05/05/2016 10:10am Weight 143.00 lb Weight 64.865 kg BP Systolic 164 mmHg BP Diastolic 92 mmHg Heart Rate 90 /min Body Temperature 98.5 F Height 65 inches 5'5" BMI (Body Mass Index) 23.8 kg/m2 Results Test Date Facility Test Result H/L Range Note Laboratory test 10/27/2018 [facility] Lyme Screen < pending> 1 finding [phone] W/ Reflex To WB C Reactive Protein 12.04 mg/L High <8.01 2 CBC Auto Diff 10/27/2018 [facility] White Blood 6.3 10^3/uL N 3.5-10.8 [phone] Count Red Blood Count 4.36 10^6/uL N 3.70-4.87 Hemoglobin 13.1 g/dL N 12.0-16.0 Hematocrit 39 % N 35-47 Mean Corpuscular Volume 89 fL N 80-97 Mean Corpuscular Hemoglobin 30 pg N 27-31 Mean Corpuscular HGB Conc 34 g/dL N 31-36 Red Cell Distribution Width 14 % N 10-15 Platelet Count 251 10^3/uL N 150-450 Mean Platelet Volume 8.2 fL N 7.4-10.4 Abs Neutrophils 5.3 10^3/uL N 1.5-7.7 Abs Lymphocytes 0.7 10^3/uL Low 1.0-4.8 Abs Monocytes 0.4 10^3/uL N 0-0.8 Abs Eosinophils 0.0 10^3/uL N 0-0.6 Abs Basophils 0.0 10^3/uL N 0-0.2 Abs Nucleated RBC 0.0 10^3/uL Granulocyte % 83.6 % Lymphocyte % 10.6 % Monocyte % 5.5 % Eosinophil % 0.1 % Basophil % 0.2 % Nucleated Red Blood Cells % 0.0 Comp Metabolic Panel 10/27/2018 [facility] Sodium 136 mmol/L N 135-145 [phone] Potassium 4.3 mmol/L N 3.5-5.0 Chloride 103 mmol/L N 101-111 Co2 Carbon Dioxide 26 mmol/L N 22-32 Anion Gap 7 mmol/L N 2-11 Glucose 99 mg/dL N 70-100 Blood Urea Nitrogen 11 mg/dL N 6-24 Creatinine 0.91 mg/dL N 0.51-0.95 BUN/Creatinine Ratio 12.1 N 8-20 Calcium 9.4 mg/dL N 8.6-10.3 Total Protein 6.6 g/dL N 6.4-8.9 Albumin 4.1 g/dL N 3.2-5.2 Globulin 2.5 g/dL N 2-4 Albumin/Globulin Ratio 1.6 N 1-3 Total Bilirubin 0.30 mg/dL N 0.2-1.0 Alkaline Phosphatase 61 U/L N 34-104 Alt 25 U/L N 7-52 Ast 29 U/L N 13-39 Egfr Non- 62.6 >60 Egfr 75.8 >60 3 Laboratory test 09/30/2018 [facility] Surgical SEE RESULT 4, 5 finding [phone] Pathology BELOW Laboratory test 08/23/2018 [facility] Erythrocyte Sed 14 mm/Hr N 0-29 6 finding [phone] Rate Comp Metabolic 08/23/2018 [facility] Sodium 140 mmol/ L N 135-1 Panel [phone] Potassium 4.4 mmol/L N 3.5-5.0 Chloride 104 [...] Egfr Non- 82.1 >60 Egfr 99.3 >60 7 CBC Auto Diff 08/23/2018 [facility] White Blood 6.5 10^3/uL N 3.5-10.8 [phone] Count Red Blood Count 4.45 10^6/uL N 3.70-4.87 [...] % Nucleated Red Blood Cells % 0.1 Laboratory test 08/23/2018 [facility] C Reactive Protein 2.14 mg/L N <8.01 8 finding [phone] Celiac Panel 04/13/2018 [facility] Tissue <1.2 U/mL 9 [phone] Transglutaminase IgA Ab Immunoglobulin A 335 mg/dL 61 - 356 Celiac Interpretation See Comment 10 Laboratory test 04/13/2018 [facility] TSH (Thyroid 3.96 mcIU/mL N 0.34-5.60 finding [phone] Stim Horm) C Reactive Protein 1.36 mg/L N <8.01 Iron & Iron Binding 04/13/2018 [facility] Iron 125 g/dL N 50-212 Capacity [phone] Unsaturated Iron Binding < 293 g/dL Total Iron Binding Capacity 308 g/dL N 250-450 Transferrin 220 mg/dL N 203-362 % Iron Saturation 41 % N 15-55 Laboratory test 03/29/2018 [facility] Hepatitis B Negative Negative 11 finding [phone] Core AB Total Cyclic Citrullinated Pep Igg <15.6 U 12 Rheumatoid Factor < 10 IU/mL N <15 13 Parvovirus B19 03/29/2018 [facility] Parvovirus Positive Abnormal Negative Igg & Igm [phone] (B19) IgG Antibody Parvovirus (B19) IgM Antibody Negative Negative Parvovirus Interpretation See Comment 14 Connective Tissue 03/03/2018 [facility] Anti-Nuclear 0.4 U 15 Panel [phone] Antibody Cyclic Citrullinated Peptide <15.6 U 16 Interpretation See Comment 17 Laboratory test 03/03/2018 [facility] Lyme Disease Negative Negative 18 finding [phone] Serology Erythrocyte Sed Rate 23 mm/Hr N 0-30 19 C Reactive Protein 2.41 mg/L N <8.01 20 CBC Auto Diff 03/03/2018 [facility] White Blood 7.0 10^3/uL N 3.5-10.8 [phone] Count Red Blood Count 4.38 10^6/uL N 4.00-5.40 Hemoglobin 13.3 g/dL N 12.0-16.0 Hematocrit 39 % N 35-47 Mean Corpuscular Volume 90 fL N 80-97 Mean Corpuscular Hemoglobin 30 pg N 27-31 Mean Corpuscular HGB Conc 34 g/dL N 31-36 Red Cell Distribution Width 14 % N 10.5-15 Platelet Count 351 10^3/uL N 150-450 Mean Platelet Volume 8.3 fL N 7.4-10.4 Abs Neutrophils 3.2 10^3/uL N 1.5-7.7 Abs Lymphocytes 3.0 10^3/uL N 1.0-4.8 Abs Monocytes 0.7 10^3/uL N 0-0.8 Abs Eosinophils 0.1 10^3/uL N 0-0.6 Abs Basophils 0 10^3/uL N 0-0.2 Abs Nucleated RBC 0 10^3/uL Granulocyte % 45.3 % N 38-83 Lymphocyte % 42.9 % N 25-47 Monocyte % 10.7 % High 0-7 Eosinophil % 0.9 % N 0-6 Basophil % 0.2 % N 0-2 Nucleated Red Blood Cells % 0.1 Comp Metabolic Panel 03/03/2018 [facility] Sodium 141 mmol/L N 135-145 [phone] Potassium 4.3 mmol/L N 3.5-5.0 Chloride 107 mmol/L N 101-111 Co2 Carbon Dioxide 29 mmol/L N 22-32 Anion Gap 5 mmol/L N 2-11 Glucose 115 mg/dL High 70-100 Blood Urea Nitrogen 16 mg/dL N 6-24 Creatinine 0.75 mg/dL N 0.51-0.95 BUN/Creatinine Ratio 21.3 High 8-20 Calcium 9.5 mg/dL N 8.6-10.3 Total Protein 7.0 g/dL N 6.4-8.9 Albumin 4.1 g/dL N 3.2-5.2 Globulin 2.9 g/dL N 2-4 Albumin/Globulin Ratio 1.4 N 1-3 Total Bilirubin 0.20 mg/dL N 0.2-1.0 Alkaline Phosphatase 106 U/L High 34-104 Alt 18 U/L N 7-52 Ast 20 U/L N 13-39 Egfr Non- 78.3 >60 Egfr 94.7 >60 21 Lipid Profile 01/06/2018 [facility] Triglycerides 121 mg/dL 22 (Trig/Chol/HDL) [phone] Cholesterol 168 mg/dL 23 HDL Cholesterol 53.3 mg/dL 24 LDL Cholesterol 91 mg/dL 25 CBC Auto Diff 01/06/2018 [facility] White Blood 6.9 10^3/uL N 3.5-10.8 [phone] Count Red Blood Count 4.52 10^6/uL N 4.00-5.40 Hemoglobin 13.5 g/dL N 12.0-16.0 Hematocrit 41 % N 35-47 Mean Corpuscular Volume 90 fL N 80-97 Mean Corpuscular Hemoglobin 30 pg N 27-31 Mean Corpuscular HGB Conc 33 g/dL N 31-36 Red Cell Distribution Width 14 % N 10.5-15 Platelet Count 303 10^3/uL N 150-450 Mean Platelet Volume 8.4 um3 N 7.4-10.4 Abs Neutrophils 4.0 10^3/uL N 1.5-7.7 Abs Lymphocytes 2.1 10^3/uL N 1.0-4.8 Abs Monocytes 0.7 10^3/uL N 0-0.8 Abs Eosinophils 0.1 10^3/uL N 0-0.6 Abs Basophils 0 10^3/uL N 0-0.2 Abs Nucleated RBC 0 10^3/uL Granulocyte % 57.5 % N 38-83 Lymphocyte % 30.8 % N 25-47 Monocyte % 10.2 % High 0-7 Eosinophil % 1.3 % N 0-6 Basophil % 0.2 % N 0-2 Nucleated Red Blood Cells % 0.1 Comp Metabolic Panel 01/06/2018 [facility] Sodium 139 mmol/L N 135-145 [phone] Potassium 4.6 mmol/L N 3.5-5.0 Chloride 106 mmol/L N 101-111 Co2 Carbon Dioxide 27 mmol/L N 22-32 Anion Gap 6 mmol/L N 2-11 Glucose 76 mg/dL N 70-100 Blood Urea Nitrogen 13 mg/dL N 6-24 Creatinine 0.72 mg/dL N 0.51-0.95 BUN/Creatinine Ratio 18.1 N 8-20 Calcium 9.4 mg/dL N 8.6-10.3 Total Protein 7.2 g/dL N 6.4-8.9 Albumin 4.2 g/dL N 3.2-5.2 Globulin 3.0 g/dL N 2-4 Albumin/Globulin Ratio 1.4 N 1-3 Total Bilirubin 0.50 mg/dL N 0.2-1.0 Alkaline Phosphatase 104 U/L N 34-104 Alt 18 U/L N 7-52 Ast 21 U/L N 13-39 Egfr Non- 82.1 >60 Egfr 99.3 >60 26 Laboratory test 01/01/2018 [facility] Surgical SEE RESULT 27, 28 finding [phone] Pathology BELOW Laboratory test 10/22/2017 [facility] Surgical SEE RESULT 29, 30 finding [phone] Pathology BELOW Laboratory test 06/02/2017 [facility] TSH (Thyroid 2.95 N 0.34 finding [phone] Stimulating mcIU/mL -5.6 Horm) 0 Basic Metabolic 06/02/2017 [facility] Sodium 137 mmol /L N 133- Panel [phone] Potassium 4.1 mmol/L N 3.5-5.0 Chloride 102 mmol/L N 101-111 Co2 Carbon Dioxide 28 mmol/L N 22-32 Anion Gap 7 mmol/L N 2-11 Glucose 76 mg/dL N 70-100 Blood Urea Nitrogen 12 mg/dL N 6-24 Creatinine 0.70 mg/dL N 0.51-0.95 BUN/Creatinine Ratio 17.1 N 8-20 Calcium 9.8 mg/dL N 8.6-10.3 Egfr Non- 85.1 >60 Egfr 109.4 >60 31 CBC No Diff 06/02/2017 [facility] White Blood 7.6 10^ 3/uL N 3.5-10.8 [phone] Count Red Blood Count 4.49 10^6/uL N 4.0-5.4 Hemoglobin 13.7 g/dL N 12.0-16.0 Hematocrit 41 % N 35-47 Mean Corpuscular Volume 91 fL N 80-97 Mean Corpuscular Hemoglobin 31 pg N 27-31 Mean Corpuscular HGB Conc 34 g/dL N 31-36 Red Cell Distribution Width 13 % N 10.5-15 Platelet Count 337 10^3/uL N 150-450 Mean Platelet Volume 9 um3 N 7.4-10.4 Urine DIP 02/19/2017 In House Lab Leukocytes neg Neg [phone] Urine Nitrites neg Neg Urobilinogen norm Norm Total Protein, Urine neg Neg Urine pH 7 High 5-6 Urine Blood neg Neg Specific Adah 1.005 Low 1.01-1.02 Urine Ketones neg Neg Urine Bilirubin neg Neg Urine Glucose norm Norm Laboratory test 06/25/2016 [facility] Hemoglobin A1c 5.6 % N Less than 32 finding [phone] (Glyco HGB) 6.0 Lipid Profile 06/25/2016 [facility] Triglycerides 95 mg/dL N 33 (Trig/Chol/HDL) [phone] Cholesterol 227 mg/dL N 34 HDL Cholesterol 66.8 mg/dL N 35 LDL Cholesterol 141 mg/dL N 36 Laboratory 06/25/2016 [facility] Hepatitis C Nonreactive N Nonreactive 37 test finding [phone] Antibody CBC Auto Diff 06/25/2016 [facility] White Blood 5.5 10^3/uL N 3.5-10.8 [phone] Count Red Blood Count 4.34 10^6/uL N 4.0-5.4 Hemoglobin 13.9 g/dL N 12.0-16.0 Hematocrit 42 % N 35-47 Mean Corpuscular Volume 98 fL High 80-97 Mean Corpuscular Hemoglobin 32 pg High 27-31 Mean Corpuscular HGB Conc 33 g/dL N 31-36 Red Cell Distribution Width 13 % N 10.5-15 Platelet Count 310 10^3/uL N 150-450 Mean Platelet Volume 8 um3 N 7.4-10.4 Abs Neutrophils 2.3 10^3/uL N 1.5-7.7 Abs Lymphocytes 2.3 10^3/uL N 1.0-4.8 Abs Monocytes 0.8 10^3/uL N 0-0.8 Abs Eosinophils 0.1 10^3/uL N 0-0.6 Abs Basophils 0.1 10^3/uL N 0-0.2 Abs Nucleated RBC 0 10^3/uL N Granulocyte % 41.6 % N 38-83 Lymphocyte % 42.1 % N 25-47 Monocyte % 14.0 % High 1-9 Eosinophil % 1.0 % N 0-6 Basophil % 1.3 % N 0-2 Nucleated Red Blood Cells % 0 N Comp Metabolic Panel 06/25/2016 [facility] Sodium 136 mmol/L N 133-145 [phone] Potassium 3.9 mmol/L N 3.5-5.0 Chloride 98 mmol/L Low 101-111 Co2 Carbon Dioxide 31 mmol/L N 22-32 Anion Gap 7 mmol/L N 2-11 Glucose 92 mg/dL N 70-100 Blood Urea Nitrogen 11 mg/dL N 6-24 Creatinine 0.67 mg/dL N 0.51-0.95 BUN/Creatinine Ratio 16.4 N 8-20 Calcium 10.0 mg/dL N 8.6-10.3 Total Protein 7.4 g/dL N 6.4-8.9 Albumin 4.5 g/dL N 3.2-5.2 Globulin 2.9 g/dL N 2-4 Albumin/Globulin Ratio 1.6 N 1-3 Total Bilirubin 0.60 mg/dL N 0.2-1.0 Alkaline Phosphatase 80 U/L N 34-104 Alt 53 U/L High 7-52 Ast 48 U/L High 13-39 Egfr Non- 89.8 N >60 Egfr 115.5 N >60 38 HIV 1/2 AB 06/25/2016 [facility] HIV 1 2 Nonreactive N Nonreactive 39 Evaluation [phone] Antibody 1 [id number] 2 [id number] 3 Because ethnic data is not always [...] 5 Kidney failure <15 (or dialysis) 4 1225-A:Morphology: pearly telangiectatic papule;DDX: Basal Cell Carcinoma vs. Sebaceous Hyperplas 5 SEE RESULT BELOW Name: BETO OCAMPO : [address]: Nichol Cuello MD Acct: [id number] Unit: [id number] AGE: 62 Location: [facility] Re09/30/18 SEX: F Status: REG REF SPEC: [id number] AREN: 09/30/18 [facility] DR: Nichol Cuello MD REQ: [id number] RECD: 09/30/18 STATUS: AMANDA VIRAMONTES DR: Hung Williamson MD _ ORDERED: LEVEL 3 COMMENTS: [id number] FINAL DIAGNOSIS Skin, left lower forehead, biopsy: -- Follicular cyst, infundibular type. CLINICAL HISTORY PRE-OPERATIVE DIAGNOSIS Pearly telangiectatic papule; basal cell carcinoma vs sebaceous hyperplasia GROSS DESCRIPTION The specimen is received in formalin labeled, Left Lower Forehead, and consists of a 0.5 x 0.4 cm mottled lewis-white ovoid hairbearing skin shave. Received separately in the same container is a 0.2 x 0.1 x 0.1 cm aggregate of lewis-white friable material. The specimen is inked, bisected and submitted entirely in one cassette. Signed by and Reported on: Claribel Lawrence MD 10/01/18 1042 END OF REPORT DEPARTMENT OF PATHOLOGY, [address] [place] [address] Og Clay M.D. Director [facility] # [id number] 6 Please check labs 2 days before follow up 7 Because ethnic data is not always readily [...] 15-29 5 Kidney failure <15 (or dialysis) 8 Please check labs 2 days before follow up 9 REFERENCE VALUE <4.0 (Negative) Test Performed by: [place] [address] 10 Negative serology. Celiac disease unlikely. However, approximately 10% of patients with celiac disease are seronegative. Also, patients who are already adhering to a gluten-free diet may be seronegative. If celiac disease is highly clinically suspected, consider HLA-DQ typing. Test Performed by: [place] [id number] Test Performed by: [facility] [employer] [address] [place] [id number] 12 REFERENCE VALUE <20.0 (Negative) Test Performed by: [address] [address] 13 [id number] RESULT: Results suggest past infection. ADDITIONAL INFORMATION This test has been modified from the real estate leasing agent's instructions. Its performance characteristics were determined by [facility] in a manner consistent with CLIA requirements. This test has not been cleared or approved by the U.S. Food and Drug Administration. Test Performed by: [facility] [employer] [address] [place] [id number] 15 REFERENCE VALUE <=1.0 (Negative) 16 REFERENCE VALUE <20.0 (Negative) 17 Tests for antibodies to dsDNA and KERMIT antigens are not performed automatically unless the BINH result is > or= 3.0 U. Studies performed at [facility] indicate that positive BINH results <3.0 U are rarely accompanied by positive second order tests. Test Performed by: [facility] [address] [place] [address] 18 No evidence of antibodies to B. burgdorferi detected. False negative results may occur in recently infected patients (<=2 weeks) due to low or undetectable antibody levels to B. burgdorferi. If recent exposure is suspected, a second sample should be collected and tested in 2-4 weeks. Test Performed by: [facility] [address] [place] [address] 19 [id number] 20 [id number] 21 Because ethnic data is not always readily [...] 15-29 5 Kidney failure <15 (or dialysis) 22 Desirable: <150 Borderline High: 150-199 High: 200-499 Very High: >500 23 Desirable: <200 Borderline High: 200-239 High: >239 24 Low: <40 Desirable: 40-60 High: >60 25 Desirable: <100 Near Optimal: 100-129 Borderline High: 130-159 High: 160-189 Very High: >189 26 Because ethnic data is not always readily [...] 15-29 5 Kidney failure <15 (or dialysis) 27 [id number] 28 SEE RESULT BELOW Name: BETO OCAMPO : [address]: Geovanny Gomez MD Acct: [id number] Unit: [id number] AGE: 62 Location: [facility] Re01/01/18 SEX: F Status: REG REF SPEC: [id number] AREN: 01/01/18-133 [facility] DR: Geovanny Gomez MD REQ: [id number] RECD: 01/01/18 STATUS: AMANDA VIRAMONTES DR: Hung Cuello MD _ ORDERED: LEVEL 4 COMMENTS: [id number] FINAL DIAGNOSIS Vermilion right lower lip, incisional biopsy: -- Hyper parakeratotic and hypertrophic actinic keratosis. -- No invasive carcinoma identified. PRE-OPERATIVE DIAGNOSIS Rule out actinic keratosis/squamous cell carcinoma/basal cell carcinoma POST-OPERATIVE DIAGNOSIS GROSS DESCRIPTION The specimen is received in formalin labeled, Incisional Biopsy Vermilion Right Lower Lip, and consists of a 1.0 x 0.4 cm lewis-lee to blue unoriented skin ellipse excised to a maximum depth of 0.3 cm. The specimen is inked, serially sectioned and entirely submitted in one cassette. Signed by and Reported on: Og Clay MD 03/14 1625 END OF REPORT DEPARTMENT OF PATHOLOGY, [address] [place] [address] Og Clay M.D. Director [facility] # [id number] 29 [id number] 30 SEE RESULT BELOW Name: BETO OCAMPO : [address]: Geovanny Gomez MD Acct: [id number] Unit: [id number] AGE: 61 Location: [facility] Re10/22/17 SEX: F Status: REG REF SPEC: [id number] AREN: 10/22/17-1550 [facility] DR: Geovanny Gomez MD REQ: [id number] RECD: 10/23/17 STATUS: AMANDA VIRAMONTES DR: Hung Cuello MD _ ORDERED: LEVEL 3 COMMENTS: [id number] FINAL DIAGNOSIS Skin, right zygoma/yazidi, excision: -- Previously ruptured follicular cyst, infundibular type, inflamed. -- All margins are clear. PRE-OPERATIVE DIAGNOSIS D48.5 GROSS DESCRIPTION The specimen is received in formalin labeled, Excision Lesion Right Zygoma/ [place], and consists of a 2.1 x 0.8 cm lewis-white hairbearing unoriented skin ellipse excised to a depth of 0.7 cm with a central 0.8 x 0.7 x 0.1 cm lewis-pedro raised lesion. The cut surface is focally disrupted and erythematous. The specimen is inked, serially sectioned and entirely submitted in cassettes A through C to include ellipse ends in cassette A. Signed by and Reported on: Claribel Lawrence MD 10/26/17 1231 END OF REPORT DEPARTMENT OF PATHOLOGY, [address] [place] [address] Og Clay M.D. Director [facility] # [id number] 31 Because ethnic data is not always readily [...] 15-29 5 Kidney failure <15 (or dialysis) 32 Therapeutic target for the treatment of diabetes Mellitus patients is <7% HBA1C, and in selective patients <6.0%.Please refer to [place] [employer] Diabetic care guidelines for further information. 33 Desirable <150 Borderline high 150-199 High 200-499 Very High >500 34 Desirable <200 Borderline high 200-239 High >239 35 Low <40 Desirable: 40-60 High: >60 36 Desirable: <100 mg/dL Near Optimal: 100-129 mg/dL Borderline High: 130-159 mg/dL High: 160-189 mg/dL Very High: >189 mg/dL 37 [id number] 38 Because ethnic data is not always readily [...] 15-29 5 Kidney failure <15 (or dialysis) 39 It is recognized that currently available assays for the detection of antibodies to HIV-1 and/or HIV-2 may not detect all infected individuals. HIV antibodies may be undetectable in some stages of the infection and in some clinical conditions. The performance of this assay has not been established for populations of infants or children. Assayed by Chemiluminescence Microparticle Immunoassay on the Siemens Advia Centaur CP. Values obtained with different methods or kits cannot be used interchangeably.The diagnostic specificity of the ADVIA Centaur 1/O/2 Enhanced assay in the low risk population was 99.90% (6052/6058) with a 95% confidence interval of 99.78 to 99.96%. Procedures Date Code Description Status 01/06/2018 57508 EKG, at Least 12 Leads w/Interpretation and Report Completed Encounters Type Date Location Provider Dx Diagnosis Office Visit 06/28/2018 Main Office Margoth Garcia18.9 Pneumonia, 9:45a unspecified organism Office Visit 06/23/2018 Main Office Adore Justin18.9 Pneumonia, 11:45a Zeb Larios unspecified organism Office Visit 06/16/2018 Main Office Hung Williamson J18.9 Pneumonia, 9:30a unspecified organism Office Visit 04/22/2018 Main Office Adore Glasgow J01.90 Acute sinusitis, 10:30a Zeb Larios unspecified J20.9 Acute bronchitis, unspecified Office Visit 04/12/2018 4:30p Main Office Hung Williamson M25.562 Pain in left knee Office Visit 03/29/2018 10:00a Main Office Hung Williamson M25.562 Pain in left knee Office Visit 03/03/2018 4:15p Main Office Hung Williamson M25.562 Pain in left knee Office Visit 01/06/2018 8:00a Main Office Hung Williamson, Z00.00 Encntr for general adult medical exam w/o abnormal findings Z00.8 Encounter for other general examination T75.4xxS Electrocution, sequela Z23 Encounter for immunization Office Visit 04/29/2017 11:45a Main Office Hung Williamson, M54.31 Sciatica, right MD side M21.371 Foot drop, right foot Office Visit 03/06/2017 2:45p Main Office Hung Williamson, R20.2 Paresthesia of skin M48.02 Spinal stenosis, cervical region Z23 Encounter for immunization Office Visit 02/19/2017 11:15a Main Office Hung Williamson R20.2 Paresthesia of MD skin R21 Rash and other nonspecific skin eruption M54.5 Low back pain Office Visit 01/29/2017 11:00a Main Office Hung Williamson R20.2 Paresthesia of skin Z23 Encounter for immunization Office Visit 01/07/2017 Main Office Hung F10.988 Alcohol use, 11:15a MD Clay unspecified with other alcohol-induced disorder Z23 Encounter for immunization Office Visit 06/27/2016 9:15a Main Office Hung Williamson I10 Essential (primary) hypertension R05 Cough F10.988 Alcohol use, unspecified with other alcohol-induced disorder Office Visit 05/19/2016 9:45a Main Office Hung Williamson MD R05 Cough N13.30 Unspecified hydronephrosis I10 Essential (primary) hypertension Office Visit 05/05/2016 10:15a Main Office Hung Williamson MD R05 Cough R03.0 Elevated blood-pressure reading, w/o diagnosis of htn Plan of Treatment 10/27/2018 - Hung Williamson MDA69.20 Lyme disease, unspecifiedComments:Lyme disease has reached an extreme prevalence over the past week, I must assume this is Lyme until proven otherwise.I am starting doxycycline while we test her.I told her to stop hydroxychloroquine until she is feeling better.Recommendations:Stop hydroxychloroquine at least until your symptoms start to resolve
[2018-10-28] MEDS ORDERED: NS 0.9% 1000 ML** 1,000 ML IV.FLUID IV ONE (17:03)
[2018-10-28 17:32] LABS: ABS Lymphocytes 0.4 10^3/ul (1.0-4.8); ABS Monocytes 0.2 10^3/ul (0-0.8); ABS Neutrophils 5.1 10^3/ul (1.5-7.7); Eosinophil % 0.3 %; Hematocrit 39 % (35-47); Hemoglobin 13.4 g/dL (12.0-16.0); Lymphocyte % 6.8 %; Mean Corpuscular HGB Conc 35 g/dL (31-36); Mean Corpuscular Hemoglobin 31 pg (27-31); Mean Corpuscular Volume 88 fL (80-97); Mean Platelet Volume 7.6 fL (7.4-10.4); Platelet Count 220 10^3/uL (150-450); Red Blood Count 4.38 10^6 /uL (3.70-4.87); Red Cell Distribution Width 14 % (10-15); White Blood Count 5.7 10^3/uL (3.5-10.8)
[2018-10-28] MEDS ORDERED: Cefepime(*) 1 GM in NS 0.9% 50 ML* 50 ML IVPB ONE (17:35)
--- NOTE | 2018-10-28 17:35 | ED ---
HPI Febrile Illness - HPI Summary HPI Summary: The patient is a 62 y/o F presenting to [facility] with a chief complaint of persistent fevers over the last three days. She reports that she had been camping in the [facility] about a week ago for three days, and when she returned home , he developed a fever. She visited her PCP who suspected Lyme disease, so the patient was administered a course of Doxycycline. Since visiting her PCP, her fevers have continued, and she has additionally developed a cough and increased lethargy. She denies dysuria, urinary frequency, diarrhea, and constipation. Currently, her symptoms are rated 8/10 in severity. Hx of sleep apnea, GERD, spinal stenosis. Former cigarette smoker, daily EtOH, marijuana use. - History of Current Complaint Chief Complaint: EDFever Time Seen by Provider: 10/28/18 17:03 Hx Obtained From: Patient Onset/Duration: Started Days Ago - three, Still Present Timing: Lasting Days Initial Severity: Mild Current Severity: Moderate Pain Intensity: 8 Pain Scale Used: 0-10 Numeric Aggravating Factors: Nothing Alleviating Factors: Nothing - Doxycycline to no relief Associated Signs and Symptoms: Cough, Other: - POSITIVE: lethargy; NEGATIVE: diarrhea, constipation, urinary frequency - Additional Pertinent History Primary Care Physician: [id number] - Allergy/Home Medications Allergies/Adverse Reactions: Allergies Allergy/AdvReac Type Severity Reaction Status Date / Time cyclobenzaprine Allergy Rash And Verified 10/28/18 16:23 [From Flexeril] Itching naproxen [From Naprosyn] Allergy Rash And Verified 10/28/18 16:23 Itching amoxicillin AdvReac Diarrhea Verified 10/28/18 16:23 Home Medications: Home Medications DOXYcycline CAP(*) [DOXYcycline 100MG CAP(*)] 100 mg PO BID 10/28/18 [History Confirmed 10/28/18] Hydroxychloroquine TAB* [Plaquenil TAB*] 400 mg PO DAILY 10/28/18 [History Confirmed 10/28/18] Lactobacillus Acidophilus* [Culturelle*] 1 cap PO DAILY 10/28/18 [History Confirmed 10/28/18] Turmeric Root Extract [Ra Turmeric] 500 mg PO DAILY 10/28/18 [History Confirmed 10/28/18] PMH/Surg Hx/FS Hx/Imm Hx Endocrine/Hematology History: Denies: Hx Anticoagulant Therapy, Hx Blood Disorders, Hx Diabetes, Hx Unexplained Bleeding Cardiovascular History: Reports: Other Cardiovascular Problems/Disorders - was told had mitral valve prolapse - 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 Denies: Hx Hypertension, Hx Pacemaker/ICD Respiratory History: Reports: Hx Sleep Apnea - current auto-CPAP user, some compliance issues Denies: Other Respiratory Problems/Disorders GI History: Reports: Hx Gastroesophageal Reflux Disease - yrs ago, no meds History: Denies: Hx Renal Disease Musculoskeletal History: Reports: Hx Back Problems - h/o cervical fusion; spinal stenosis, Other Musculoskeletal History - leg pain Denies: Hx Osteoporosis Sensory History: Reports: Hx Cataracts - no surgery needed yet, Hx Contacts or Glasses Denies: Hx Hearing Aid Opthamlomology History: Reports: Hx Cataracts - no surgery needed yet, Hx Contacts or Glasses Neurological History: Reports: Hx Spinal Cord Injury - spinal stenosis Psychiatric History: Denies: Hx Panic Disorder - Cancer History Hx Chemotherapy: No Hx Radiation Therapy: No - Surgical History Surgery Procedure, Year, and Place: dental surgery,. 1986 [facility] [place]- tubal ligation, 1987 [facility] [place]- hysterectomy,. 2001 [facility] [place]- discectomy- W/ PLATE. 2009 [facility] [place]- (left) knee medial & meniscus tear. LT EYE - LASIX FOR VISION Hx Anesthesia Reactions: No Infectious Disease History: No Infectious Disease History: Denies: Traveled Outside the [place] in Last 30 Days - Family History Known Family History: Negative: Diabetes - Social History Alcohol Use: Daily Alcohol Amount: reports couple gallons wine per week Hx Substance Use: Yes Substance Use Type: Reports: Marijuana Substance Use Comment - Amount & Last Used: 6 months ago Hx Tobacco Use: Yes Smoking Status (MU): Former Smoker Type: Cigarettes Amount Used/How Often: 1 ppd for 25 years Review of Systems Positive: Fever, Other - lethargic Positive: Cough Positive: Other - NEGATIVE: constipation. Negative: Diarrhea Negative: dysuria, frequency All Other Systems Reviewed And Are Negative: Yes Physical Exam - Summary Physical Exam Summary: VITAL SIGNS: Reviewed. Increased temperature. GENERAL: Patient is a well-developed and nourished female who is lying comfortable in the stretcher. Patient is not in any acute respiratory distress. She appears to be flushed. HEAD AND FACE: No signs of trauma. No ecchymosis, hematomas or skull depressions. No sinus tenderness. EYES: PERRLA, EOMI x 2, No injected conjunctiva, no nystagmus. EARS: Hearing grossly intact. Ear canals and tympanic membranes are within normal limits. MOUTH: Oropharynx within normal limits. NECK: Supple, trachea is midline, no adenopathy, no JVD, no carotid bruit, no c- spine tenderness, neck with full ROM. CHEST: Symmetric, no tenderness at palpation. LUNGS: Clear to auscultation bilaterally. No wheezing or crackles. CVS: Regular rate and rhythm, S1 and S2 present, no murmurs or gallops appreciated. ABDOMEN: Soft, non-tender. No signs of distention. No rebound, no guarding, and no masses palpated. Bowel sounds are normal. EXTREMITIES: FROM in all major joints, no edema, no cyanosis or clubbing. NEURO: Alert and oriented x 3. No acute neurological deficits. Speech is normal and follows commands. SKIN: Flushed. Dry and warm. Triage Information Reviewed: Yes Vital Signs On Initial Exam: Initial Vitals Temp Pulse Resp BP Pulse Ox 102 F 116 18 120/90 95 10/28/18 16:18 10/28/18 16:18 10/28/18 16:18 10/28/18 16:18 10/28/18 16:18 Vital Signs Reviewed: Yes Diagnostics - Vital Signs Vital Signs Temp Pulse Resp BP Pulse Ox 10/28/18 16:38 103 163/66 94 10/28/18 16:18 102 F 116 18 120/90 95 - Laboratory Result Diagrams: 10/28/18 17:23 10/28/18 17:23 Lab Statement: Any lab studies that have been ordered have been reviewed, and results considered in the medical decision making process. - Radiology CXR Radiology Interpretation Completed By: Radiologist Summary of Radiographic Findings: No acute process. ED physician has reviewed this report. Re-Evaluation - Re-Evaluation First Eval Re-Evaluation Time: 18:45 Comment: I discussed results and plan for admission with the patient. Course/Dx - Course Assessment/Plan: The patient is a 62 y/o F presenting to [facility] with a chief complaint of persistent fevers over the last three days. She reports that she had been camping in the [facility] about a week ago for three days, and when she returned home, he developed a fever. She visited her PCP who suspected Lyme disease, so the patient was administered a course of Doxycycline. Since visiting her PCP, her fevers have continued, and she has additionally developed a cough and increased lethargy. She denies dysuria, urinary frequency, diarrhea , and constipation. Currently, her symptoms are rated 8/10 in severity. Hx of sleep apnea, GERD, spinal stenosis. Former cigarette smoker, daily EtOH, marijuana use. Blood work without any signs is informed by the nurse that the patient is positive for the test criteria. Therefore we started IV fluids 30 cc s per KG, and the patient was given a broad-spectrum antibiotic Zosyn. Blood test results without any significant abnormality except for sodium of 134, glucose of 113, and CRP of 30. Urinalysis is contaminated; however the patient may have a UTI. Chest x-ray shows no acute pathology. At this point, the patient was also given Tylenol for the fever. Patient is feeling better. I discussed my physical exam and findings with Dr. Freed from the hospital services was accepted the patient for admission. - Diagnoses Provider Diagnoses: Sepsis - Provider Notifications Discussed Care Of Patient With: Manan Freed - hospitalist Time Discussed With Above Provider: 18:42 Instructed by Provider To: Other - I discussed the patient's case with Dr. Freed, and he accepts the patient for admission. Discharge - Sign-Out/Discharge Documenting (check all that apply): Patient Departure - Patient is accepted for admission by Dr. Freed. Patient Received Moderate/Deep Sedation with Procedure: No - Discharge Plan Condition: Stable Disposition: ADMITTED TO [facility] - Billing Disposition and Condition Condition: STABLE Disposition: Admitted to [facility] - Attestation Statements Document Initiated by Jody: Yes Documenting Scribe: Kary Raman Provider For Whom Jody is Documenting (Include Credential): Dr. Raffi Cano MD Scribe Attestation: Kary Card, scribed for Dr. Raffi Cano MD on 10/28/18 at 2104. Scribe Documentation Reviewed: Yes Provider Attestation: The documentation as recorded by the Kary santiago accurately reflects the service I personally performed and the decisions made by me, Dr. Raffi Cano MD Status of Scribe Document: Ready
[2018-10-28] MEDS ORDERED: NS 0.9% 50 ML* 50 ML ONE (17:41)
[2018-10-28 17:42] LABS: Activated Partial Thrombo Time 30.9 seconds (26.0-38.0); Fibrinogen 344.2 mg/dL (110.8-404.3); INR 1.06 (0.82-1.09)
[2018-10-28 17:50] LABS: Albumin 3.9 g/dL (3.2-5.2); Albumin/Globulin Ratio 1.5 (1-3); BUN/Creatinine Ratio 11.9 (8-20); C Reactive Protein 30.29 mg/L (<8.01); Calcium 9.2 mg/dL (8.6-10.3); EGFR African American 83.1 (>60); EGFR Non-African American 68.7 (>60); Globulin 2.6 g/dL (2-4); Potassium 3.6 mmol/L (3.5-5.0); Total Bilirubin 0.4 mg/dL (0.2-1.0); Total Protein 6.5 g/dL (6.4-8.9)
[2018-10-28] MEDS ORDERED: Acetaminophen TAB* 325 MG PO ONE (18:37)
[2018-10-28 18:55] LABS: Erythrocyte Sed Rate 12 mm/Hr (0-29)
[2018-10-28 19:03] LABS: Urine Appearance Cloudy; Urine Bacteria Absent (Absent); Urine Bilirubin Negative (Negative); Urine Blood 2+ (Negative); Urine Color Yellow; Urine Glucose Negative (Negative); Urine Ketones Trace (Negative); Urine Nitrite Negative (Negative); Urine Protein Negative (Negative); Urine Red Blood Cell 2+(6-10/hpf) (Absent); Urine Specific Gravity 1.015 (1.010-1.030); Urine Squamous Epithelial Cell Present (Absent); Urine Urobilinogen Negative (Negative); Urine White Blood Cell 2+(11-20/hpf) (Absent)
[2018-10-28] MEDS ORDERED: Acetaminophen TAB* 325 MG PO PRN (19:59)
[2018-10-28] MEDS ORDERED: Ondansetron INJ* 2 MG/ML VIAL IV PRN (19:59)
[2018-10-28] MEDS ORDERED: Enoxaparin(*) 40 MG/0.4 ML SYR SUBCUT SCH (21:00)
[2018-10-28] MEDS: NS 0.9% 1000 ML** 1,000 ML IV SCH (21:42)
--- NOTE | 2018-10-28 22:21 | PN ---
Hospitalist Progress Note Date of Service: 10/28/18 In review of patient's chart, Lyme PCR negative from 10/27. Continue cefepime at this time. Continue monitoring macular area to neck; if continued spread, consider discontinuation of cefepime (may be cross pcn/cephalosporin allergy). Area is currently stable.
[2018-10-28] MEDS: CMCS: Cyclosporine 0.05% OPHTH (NF) 0.4 ML VIAL BOTH EYES SCH (23:13)
--- NOTE | 2018-10-28 23:47 | HP ---
CC: Dr. Hung Williamson * MEDICINE HISTORY AND PHYSICAL: DATE OF ADMISSION: 10/28/18 PROVIDER: Ceferino Guillen NP ATTENDING PHYSICIAN: Nicola Gooden MD * (DICTATED BY CEFERINO GUILLEN NP) PRIMARY CARE PHYSICIAN: Dr. Hung Williamson. CHIEF COMPLAINT: Fever, altered mental status. HISTORY OF PRESENT ILLNESS: Ms. Chasity Ocampo is a 62-year-old female, who presented today with concern for fever with altered mental status. Chasity provides a history with help of her family, which includes her , Bob Ocampo, and her daughter, Umm, who is an RN here at [facility]. She reports that from Thursday to Thursday of last week, they were at an outdoor music festival and stayed in [employer]. She reports that on Thursday evening, she was at the [employer] and the cold air was blowing on them and that she was coughing quite a bit. It kept her up most of the night. She has had persistent cough since that time. Denies coughing anything up. Reports sore throat from the coughing, mostly to the left side of her neck and the throat. She endorses feelings of fever and chills since Thursday though it became more pronounced on Thursday. She was at [facility] with her family and states that she was outside in the heat but felt cold and went to go sit in the car, where she could be warm. This persisted and she called her PCP who saw her that evening at 5 p.m. He started her on doxycycline for presumed Lyme disease as she does live out in the [facility]. She took 2 doxycycline last evening and 1 this morning, but fever persisted. She also took Tylenol this morning, felt progressively worse. Her daughter states that when she called her mother that she was not making much sense and she was concerned and had her brought in to the ER for further evaluation. Chasity denies any known tick exposure. She denies seeing any ticks on her. She states she usually try to use Deep [place] OFF as a protectant. She denies any sick contacts. Does not think she was not exposed any stray animals, contaminated food or water sources. She was with others in her travels, usually her , and he is not sick. Again, she does endorse the left neck and throat hurting and headache as well as some nausea. She denies chest pain, trouble breathing, abdominal pain, vomiting, diarrhea, dysuria, flank pain, hematuria, already known rashes or lesions. Here in the ER, sepsis evaluation was initiated with blood cultures, urine cultures, and chest x-ray all of which are generally unremarkable; however, she does have a 102 fever and concern for slightly altered mental status and for this reason, Hospital Medicine was consulted for admission. PAST MEDICAL HISTORY: Includes: 1. Rheumatoid arthritis, which was diagnosed roughly 6 months ago, on Plaquenil. 2. Obstructive sleep apnea, not on CPAP. 3. Osteoarthritis. PAST SURGICAL HISTORY: Includes: 1. Tubal ligation. 2. Hysterectomy. 3. Diskectomy. 4. Left knee meniscectomy. 5. Lumbar laminectomy. 6. Cervical neck surgery. HOME MEDICATIONS: 1. Doxycycline 100 mg b.i.d. 2. Turmeric 500 mg daily. 3. Restasis 0.05% drops, 1 drop to both eyes b.i.d. 4. Lactobacillus 1 capsule daily. 5. Plaquenil 400 mg daily. 6. [place]-3 fatty acids 1000 mg daily. 7. Multivitamin 1 tab daily. 8. Calcium citrate 2 tabs daily. ALLERGIES: Include CYCLOBENZAPRINE, NAPROXEN, AMOXICILLIN. FAMILY HISTORY: She reports that her mother of liver cirrhosis. Her father of lung cancer. Her younger sister has lung cancer. She had a brother who in an MVA, another brother who by suicide. SOCIAL HISTORY: She is a former smoker reporting cessation of smoking over 24 years ago. She is a former drinker with last alcohol use 2 years ago. She denies any illicit drug use. She is retired. She used to work in [employer]. She is and has 2 daughters. Her , Bob Ocampo, is her surrogate decision maker and her daughter, Umm Feliz, is her secondary healthcare proxy. REVIEW OF SYSTEMS: As per HPI. Twelve-point review of systems was completed. All pertinent positives and negatives as per HPI. PHYSICAL EXAMINATION GENERAL: This is a mildly ill-appearing, middle-aged female, lying in bed, in no acute distress. VITAL SIGNS: Temp 102, heart rate 93, respiratory rate 20, blood pressure 132/ 80, O2 saturation 98% on room air. HEENT: Head is atraumatic, normocephalic. Face is symmetrical. Pupils are equal and round. Extraocular movements are intact. Ear canals and tympanic membranes within normal limits with clear ear canals and pearly pedro tympanic membranes noted. Oral mucosa is moist. There is no oropharyngeal erythema or exudate. No mouth sores or candidiasis noted. NECK: Supple. I do appreciate one small left submandibular lymph node that is tender to the touch. Nuchal rigidity is negative. There is left-sided neck tenderness to palpation along the sternocleidomastoid muscle, but full range of motion is intact. No carotid bruits noted. No JVD noted. There is no C-spine tenderness. CHEST: Without tenderness to palpation. Lungs are clear to auscultation bilaterally with no wheezing, rales, or rhonchi. CARDIOVASCULAR: Regular rate and rhythm with normal S1, S2 heart sounds. No murmur appreciated. EXTREMITIES: Without edema. DP pulses are 2+ and present with brisk capillary refill. ABDOMEN: Soft, nontender, nondistended with normoactive bowel sounds. No suprapubic tenderness. No CVA tenderness. No rebound or guarding. MUSCULOSKELETAL: No clubbing or cyanosis. Full range of motion present. NEURO: No focal deficits noted. She is alert and oriented x3. Answers appropriately. Speech is fluent. Follows commands. Sensation is intact to light touch to lower extremities. SKIN: There is a macular reddened rash to the neck anteriorly and limited to the neck region only; does not extend on the chest or back. It is warm to the touch and is blanchable. No other rashes or open wounds noted. DIAGNOSTIC STUDIES/LAB DATA: CBC: WBC 5.7, hemoglobin 13.4, hematocrit 39, platelet count 220. ESR is 12. CMP: Sodium 134, potassium 3.6, chloride 104, carbon dioxide 24, BUN 10, creatinine 0.84, glucose 113, lactic acid 0.8, calcium 9.2. Total bilirubin 0.4, AST 39, ALT 36, alk phos 57. Troponin 0.00. CRP 30.29. BNP 24. Urinalysis showed trace ketones, 2+ blood, negative nitrites, 2+ leukocyte esterase, 2+ wbc's, epithelial cells are present, bacteria is absent. Chest x-ray without report but reviewed, no acute pathology seen and old medical records were reviewed. ASSESSMENT AND PLAN: This is a 62-year-old female, who presents today with concern for persistent fever, started on doxycycline less than 24 hours ago, still having significant fevers and concern for mild altered mental status. She will be admitted under OBV status to the medicine floor for further observation and supportive care. Plan is as follows: 1. Fever. Etiology unknown at this point in time, although Lyme disease does appear to be in differential at this point. We will also add a tick borne illness panel as well as rule out other viral illnesses, including HIV, CMV, EBV , mono. She was started on doxycycline as outpatient, took less than 24 hours with the medication, given 1 dose of cefepime here in the hospital. Urine does look somewhat contaminated, possibly infected. It is reasonable to continue cefepime at this point as this would cover both lung disease and urinary pathogens. Continue supportive care with fluids. Consider ID consult if symptoms progress or fail to improve. Altered mental status is already improving while here with supportive care and we will continue to monitor closely. 2. Rheumatoid arthritis. She should continue outpatient rheumatology followup. She is on Plaquenil, which we can continue at this point in time as her laboratory appears stable. 3. Obstructive sleep apnea. She does not use CPAP at home. She does not use home oxygen. 4. FEN. She can have regular diet. She is receiving fluid resuscitation. 5. DVT prophylaxis. She is rated high risk. She is on SCDs and subcu Lovenox. 6. Code status. She is a full code. 7. Disposition. Anticipate discharge to home when medically stable. TIME SPENT: Approximately 60 minutes was spent on this admission, more than half the time was spent [id number] with the patient obtaining history and physical, performing the physical examination, and reviewing the plan of care. Plan of care was also reviewed with my attending, Dr. Gooden, who is in agreement. CEFERINO GUILLEN, WILLIS [id number]/CPS #: [id number] MTDD
[2018-10-29 05:47] LABS: ABS Lymphocytes 0.6 10^3/ul (1.0-4.8); ABS Monocytes 0.3 10^3/ul (0-0.8); ABS Neutrophils 2.5 10^3/ul (1.5-7.7); Eosinophil % 0.1 %; Hematocrit 36 % (35-47); Hemoglobin 12.4 g/dL (12.0-16.0); Lymphocyte % 17.9 %; Mean Corpuscular HGB Conc 34 g/dL (31-36); Mean Corpuscular Hemoglobin 30 pg (27-31); Mean Corpuscular Volume 88 fL (80-97); Mean Platelet Volume 7.7 fL (7.4-10.4); Platelet Count 197 10^3/uL (150-450); Red Blood Count 4.12 10^6 /uL (3.70-4.87); Red Cell Distribution Width 14 % (10-15); White Blood Count 3.4 10^3/uL (3.5-10.8)
[2018-10-29 05:54] LABS: BUN/Creatinine Ratio 13.1 (8-20); Calcium 8.2 mg/dL (8.6-10.3); EGFR African American 120.3 (>60); EGFR Non-African American 99.4 (>60); Potassium 3.6 mmol/L (3.5-5.0)
[2018-10-29] MEDS ORDERED: Cefepime 1 GM in Dextrose(*) 1 GM/50 ML BAG IV SCH (06:00)
[2018-10-29] MEDS: NS 0.9% 1000 ML** 1,000 ML IV SCH (08:10)
[2018-10-29] MEDS ORDERED: Hydroxychloroquine TAB* 200 MG PO SCH (09:00)
[2018-10-29] MEDS ORDERED: CMCS: OMEGA-3 FATTY ACIDS (NF) 1,000 MG CAP PO SCH (09:00)
[2018-10-29] MEDS ORDERED: Lactobacillus Acidophilus* 1 TAB PO SCH (09:00)
[2018-10-29] MEDS ORDERED: Calcium Citrate TAB* 200 MG PO SCH (09:00)
[2018-10-29] MEDS ORDERED: Multivitamins/Minerals TAB PO SCH (09:00)
[2018-10-29] MEDS: CMCS: Cyclosporine 0.05% OPHTH (NF) 0.4 ML VIAL BOTH EYES SCH (09:37)
[2018-10-29 10:22] VITALS: BP 121/72
[2018-10-30 13:21] LABS: Cytomegalovirus IgG Antibody Positive (Negative)
[2018-10-30 15:53] LABS: HIV-1 RNA (PCR) Undetected copies/mL (Undetected)
--- NOTE | 2018-10-31 20:38 | DS ---
DISCHARGE SUMMARY: DATE OF ADMISSION: 10/28/18 DATE OF DISCHARGE: 10/29/18 ADMITTING PROVIDER: Corrie Quach NP ATTENDING PHYSICIAN ON DAY OF DISCHARGE: Last Gonzalez MD PRIMARY CARE PHYSICIAN: Hung Williamson MD CHIEF COMPLAINT: Fever, altered mental status. PRINCIPAL DIAGNOSIS: Sepsis, likely secondary to urinary tract infection. HISTORY OF PRESENT ILLNESS AND HOSPITAL COURSE: Chasity Ocampo is a 62-year- old female with past medical history of rheumatoid arthritis, on Plaquenil; osteoarthritis; and obstructive sleep apnea, who presented with fever and altered mental status. Please see H and P of Corrie Quach NP for full details, but briefly, she had been at an outdoor musical festival and stayed at [place] [id number], was coughing at that time last week. They went to [facility] on the day prior to admission, felt cold. She also had fevers and chills for approximately 4 days prior to admission. She called her PCP. Her primary care provider gave her prescription for doxycycline for possible Lyme disease as she does live in [facility] and she took 2 a day on the day before admission and 1 in the morning, but fevers persisted. In the morning of admission, the patient was not making much sense and was presented to the emergency room where she was found to have a temperature of 102, tachycardic to 116. She was given sepsis fluid bolus. Blood cultures were obtained and started on cefepime. Fortunately , urine culture was obtained after the cefepime was delivered, but subsequent urinalysis was suspicious for urinary tract infection with 2+ blood, 2+ leukocyte esterase, 2+ wbc's, and 2+ rbc's. Her CRP was 30.3. She defervesced. Dr. Williamson had drawn Lyme antibody panel, which returned negative. She had Babesia, anaplasma, CMV, most of this workup is still pending. [place] screen did return negative. She was feeling quite well on hospital day #2 and was considered stable for discharge with suspicion for urinary tract infection. She never had a leukocytosis. Her white count was 5.7 on admission 3.4 on discharge with absolute neutrophil count. DISCHARGE MEDICATIONS: Include: 1. Calcium citrate 200 mg 2 tabs p.o. q.a.m. 2. Restasis 1 drop both eyes b.i.d. 3. Plaquenil 400 mg p.o. daily. 4. Lactobacillus 1 capsule p.o. daily. 5. Multivitamin 1 tab p.o. q.a.m. 6. [place]-3 fatty acids 1 capsule p.o. q.a.m. 7. Bactrim 1 tab p.o. b.i.d. for 6 more days, new. 8. Turmeric root extract 500 mg p.o. daily. DISPOSITION: Home. CONDITION: Improved. FOLLOWUP: Please follow up with PCP, Dr. Hung Williamson, within 7 days. Her blood cultures, final urine culture, CMV, and Babesia and anaplasma studies are still pending along with HIV was negative. TIME SPENT ON DISCHARGE: 35 minutes. [id number] #: [id number]
[2018-11-01 06:25] LABS: Anaplasma phagocytophilium <1:64 titer (<1:64); Babesiosis Evaluation <1:64 titer (<1:64); Ehrlichia chaffeensis IgG AB <1:64 titer (<1:64); Lyme Disease Serology Negative (Negative)
== END 2018-10-29 14:25 | disposition home or self-care (01) ==
LOC: ED 16:02 → MED 19:59
PROVIDERS: ADMIT Internal Medicine; ATTEND Internal Medicine
DX: A41.9 Sepsis, unspecified organism (principal); R50.9 Fever, unspecified; R41.82 Altered mental status, unspecified; M06.9 Rheumatoid arthritis, unspecified; M19.90 Unspecified osteoarthritis, unspecified site; G47.33 Obstructive sleep apnea (adult) (pediatric); Z87.891 Personal history of nicotine dependence; Z88.0 Allergy status to penicillin; K21.9 Gastro-esophageal reflux disease without esophagitis
CPT/HCPCS: 36415; 71046; 80048; 80053; 81003; 81015; 82550; 83605; 83880; 84484; 85025; 85384; 85610; 85652; 85730; 86140; 86308; 86618; 86644; 86645; 86666; 86753; 87040; 87086; 87536; 96365; 96372; 99285; A9270-GY; G0378; J0692; J1650